=== PATIENT | female | born 1945 | race Caucasian/White ===

== ENCOUNTER 2017-01-31 11:38 | Emergency (ER) | payer OTHER ==
[~2017-01-31] VITALS: Ht 172.7 cm; Wt 111.1 kg
[2017-01-31] MEDS ORDERED: ASPIRIN81 M4 PO (11:54)
[2017-01-31] MEDS ORDERED: ATORVASTATIN CA40 M1 PO (11:54)
[2017-01-31] MEDS ORDERED: VITAMIN B-121000 MC3 PO (11:55)
[2017-01-31] MEDS ORDERED: BENICAR20 M1 PO (11:55)
[2017-01-31] MEDS ORDERED: BIOTIN10000 MCG PO (11:56)
[2017-01-31] MEDS ORDERED: ZETIA10 M1 PO (11:56)
[2017-01-31] MEDS ORDERED: VITAMIN D32000 UNI1 PO (11:56)
--- NOTE | 2017-01-31 12:19 | ED MVC/FALL/TRAUMA COMPLAINT ---
History of Present Illness General Chief Complaint: Fall Stated Complaint: FALL HEAD HEMATOMA Source: patient Exam Limitations: no limitations Vital Signs & Intake/Output Vital Signs & Intake/Output Vital Signs Date Time Temp Pulse Resp B/P Pulse O2 O2 Flow FiO2 Ox Delivery Rate 01/31 1511 98.3 74 20 154/72 96 Room Air 01/31 1343 97.9 61 20 143/70 97 Room Air 01/31 1153 97.1 71 18 179/92 98 Room Air Allergies Coded Allergies: No Known Allergies (01/31/17) Reconcile Medications Aspirin (Aspirin*) 81 MG TAB.CHEW 1 TAB PO DAILY HEART HEALTH (Reported) Atorvastatin Calcium 40 MG TABLET 1 TAB PO DAILY CHOLESTEROL (Reported) Biotin 10,000 MCG CAPSULE 1 CAP PO DAILY SUPPLEMENT (Reported) Cholecalciferol (Vitamin D3) (Vitamin D3) 2,000 UNIT TABLET 1 TAB PO DAILY SUPPLEMENT (Reported) Cyanocobalamin (Vitamin B-12) 1,000 MCG TABLET 1 TAB PO DAILY SUPPLEMENT ( Reported) Ezetimibe (Zetia) 10 MG TABLET 1 TAB PO DAILY CHOLESTEROL (Reported) Olmesartan Medoxomil (Benicar) 20 MG TABLET 0.5 TAB PO DAILY HEART (Reported) Triage Note: PT PRESENT WITH HEMOTOMA AND LAC ABOVE LEFT EYE S/P TRIP AND FALL OVER A PLANT. PT DENIES LOC AND STATES PAIN 4/10. DENIES FEELING DIZZY Triage Nurses Notes Reviewed? yes HPI: Patient presents for evaluation of left periorbital ecchymoses status post fall. Patient states that she was carrying some things outside when she tripped over a plant. His occurred at 10:00 this morning at home. Patient denies associated loss of consciousness neck or back pain. She states however she had an abrupt onset of left forehead pain and swelling. Symptoms are described as mild to moderate but constant since onset. She has tried applying ice without improvement. Past History Travel History Traveled to [place] past 21 day No Medical History Any Pertinent Medical History? see below for history Cardiovascular: hypertension, HLD Cancer(s): UTERINE CA Surgical History Surgical History: non-contributory Psychosocial History What is your primary language Yakut Tobacco Use: Never used ETOH Use: denies use Family History Hx Contributory? No Review of Systems Review of Systems Constitutional: Reports: no symptoms. Eyes: Reports: no symptoms. Ears, Nose, Throat, Mouth: Reports: no symptoms. Respiratory: Reports: no symptoms. Cardiovascular: Reports: no symptoms. Gastrointestinal/Abdominal: Reports: no symptoms. Genitourinary: Reports: no symptoms. Musculoskeletal: Reports: no symptoms. Skin: Reports: see HPI. Neurological/Psychological: Reports: no symptoms. All Other Systems: Reviewed and Negative Physical Exam Physical Exam General Appearance: SEE BELOW Comments: Gen.: Well-nourished, well-developed, no acute respiratory distress. Head: Normocephalic, atraumatic, nontender. Eyes: Impressive left vj-orbital ecchymoses and soft tissue swelling with near closure of the left eye. Left eye: PERRLA, EOMI. Pupil is round. Ears: Normal inspection bilaterally, no greenfield sign Nose: Normal inspection Throat/mouth : Moist mucosa Neck: Supple, full range of motion, no goiter, nontender Heart: Regular rate and rhythm, no murmurs rubs or gallops Lungs: Clear to auscultation bilaterally with normal air entry Chest: Nontender Back: Normal range of motion, nontender Abdomen: Soft, nontender, nondistended, normal bowel sounds Pelvis: Stable and nontender Extremities: Normal range of motion grossly, no tenderness, no cyanosis clubbing or edema Neurologic: Cranial nerves grossly intact, speech is clear Skin: warm and dry and without ecchymoses or soft tissue swelling or erythema Psychiatric: Calm, cooperative, no apparent delusions or hallucinations Diagram Head: 1) Ecchymoses and soft tissue swelling and abrasion Core Measures ACS in differential dx? No Severe Sepsis Present: No Septic Shock Present: No Progress Differential Diagnosis: HEAD TRAUMA, SINUS FRACTURE, ORBITAL FRACTURE C SPINE FRACTURE Plan of Care: Orders Procedure Date/time Status CT MAXILLOFACIAL W/O CON 02/[address] HEAD WO IV CONTRAST 01/[address] CERV SPINE WO IV CONTRAST 01/31 1218 Active Diagnostic Imaging: Discussed w/RAD: CT Scan. Radiology Impression: PATIENT: GITA JIMENEZ PRESENT AGE: 71 PATIENT ACCOUNT NO: [id number] : 45 LOCATION: [facility] ORDERING PHYSICIAN: MK SANTOS MD SERVICE DATE: 01/31/17-1236 EXAM TYPE: CAT - CT CERV SPINE WO IV CONTRAST; CT HEAD WO IV CONTRAST; CT MAXILLOFACIAL W/O CON EXAMINATION: CT HEAD, FACE, AND NECK. CLINICAL INFORMATION: Status post fall with scalp hematoma. COMPARISON: No relevant prior imaging is available. TECHNIQUE: Interface Designer images were obtained. CT acquisition of the head, face, and cervical spine were obtained without intravenous administration of contrast. Data was reformatted into multiplanar images at the acquisition workstation. DLP : 1878.71 mGy-cm. FINDINGS: Head: There is a focal left supraorbital hematoma with associated swelling in the left frontal scalp. The underlying calvarium is intact. There is no acute intracranial hemorrhage or abnormal extra-axial collection. No intracranial mass effect or midline shift. Lateral and third ventricles are normal. There is no hydrocephalus. Cardoza-white matter differentiation is preserved and there is no evidence of acute territorial infarct. A few well marginated subcutaneous lesions near the vertex are suspected to represent partially calcified epidermal inclusion cysts. Face: The mandible is intact and the temporomandibular joints are symmetric. The zygomatic arches, pterygoid processes, and nasal bones are intact. Globes are symmetric. There is subtle stranding within the left retrobulbar fat with no evidence of an overt retrobulbar hematoma. The lamina papyracea and orbital floors are intact. There is mild to moderate paranasal sinus disease. The left primary maxillary sinus ostium is occluded and both of the sphenoid sinus ostia are occluded. Cervical spine: There is anatomic alignment and position of the vertebral bodies and posterior elements of the cervical spine in the sagittal dimension. Vertebral body heights are preserved. There is no evidence of acute fracture. No abnormal prevertebral soft tissue swelling. There is arthrosis of the atlantodental joint with spurring at the superior aspect of the anterior C1 arch and the odontoid tip. There is degenerative disc space narrowing with associated sclerotic degenerative endplate changes, and intervertebral vacuum disc phenomenon, and disc osteophyte spurring at the levels of C3-C4, C4-C5, C5-C6, C6-C7, and C7-T1. There are broad central protrusions that cause at least moderate canal stenosis at the levels of C3-C4, C4-C5, and C5-C6. There are varying degrees of neuroforaminal encroachment related to uncovertebral joint spurring, most severe at C3-C4. Soft tissues of the neck are unremarkable. IMPRESSION: Head and face: There is a left supraorbital scalp hematoma. The underlying calvarium is intact. No evidence of acute fracture. No acute maxillofacial fracture. Mild to moderate paranasal sinus disease. Cervical spine : There is no evidence of acute cervical spine fracture. There is multilevel degenerative spondylosis with at least moderate canal stenosis at the levels of C3-C4, C4-C5, and C5-C6. If there is a clinical concern for compressive myelopathy then a dedicated cervical spine MRI should be obtained for better anatomic characterization of the cord. DICTATED BY: BOYD CHAVES MD DATE/ TIME DICTATED:01/31/171503 ART DISPLAY MAKER:WIL DATE/TIME TRANSCRIBED: 01/31/171503 CONFIDENTIAL, DO NOT COPY WITHOUT APPROPRIATE AUTHORIZATION. < Electronically signed in Other Vendor System> SIGNED BY: BOYD CHAVES MD 01/31/17 1519 Comments: 01/31/2017 2:00:10 PM I have updated Gita on the delay in her CAT scan (there is a complicated procedure in progress). She understands and is willing to wait. Unfortunately her left eye is now swollen shut and quite ecchymotic. However there is no focal neurologic deficit on repeat evaluation the patient's speech is clear and her gait is stable. Departure Departure Disposition: HOME OR SELF CARE Condition: Stable Clinical Impression Primary Impression: Traumatic hematoma of forehead Qualifiers: Encounter type: initial encounter Qualified Code: S00.83XA - Contusion of other part of head, initial encounter Secondary Impressions: Degenerative joint disease of cervical spine Qualifiers: Spinal osteoarthritis complication: without myelopathy or radiculopathy Qualified Code: M47.812 - Spondylosis without myelopathy or radiculopathy, cervical region Fall Qualifiers: Encounter type: initial encounter Qualified Code: W19.XXXA - Unspecified fall, initial encounter Sinus disease Referrals: BELINDA THAO,FARRAH Heredia (PCP/Family) Additional Instructions: Cold compresses for 20 minutes at a time 3-4 times per day over the next 48 hours. Tylenol or ibuprofen as needed for pain. Follow-up with your primary care doctor for reevaluation on Friday. Return if any concerns or sudden worsening. Please note that there might be incidental findings in your evaluation that are unrelated to the current emergency department visit. Please notify your primary care doctor about this emergency department visit in order to obtain and review all of the testing performed so that these incidental findings can be monitored as needed. If you had an x-ray performed, please understand that some fractures may not be seen on the initial set of x-rays. If your symptoms persist you might need a repeat set of x-rays to check for such a fracture. If you had a laceration evaluated, please understand that foreign bodies such as glass or wood may not be visible to the naked eye or on plain x-rays. If the wound becomes red, swollen, increasingly more painful or if there is any drainage from the wound, please have it reevaluated by a physician for the possibility of a retained foreign body. Thank you for choosing the [facility] Emergency Department for your care. It was a pleasure to serve you today. Mk Santos M.D. [facility] Departure Forms: Customer Survey General Discharge Information
[2017-01-31 15:11] VITALS: BP 154/72
--- NOTE | 2017-01-31 15:19 | CT SCAN REPORT ---
EXAMINATION: CT HEAD, FACE, AND NECK. CLINICAL INFORMATION: Status post fall with scalp hematoma. COMPARISON: No relevant prior imaging is available. TECHNIQUE: Back Tender Insulation Board images were obtained. CT acquisition of the head, face, and cervical spine were obtained without intravenous administration of contrast. Data was reformatted into multiplanar images at the acquisition workstation. DLP: 1878.71 mGy-cm. FINDINGS: Head: There is a focal left supraorbital hematoma with associated swelling in the left frontal scalp. The underlying calvarium is intact. There is no acute intracranial hemorrhage or abnormal extra-axial collection. No intracranial mass effect or midline shift. Lateral and third ventricles are normal. There is no hydrocephalus. Cardoza-white matter differentiation is preserved and there is no evidence of acute territorial infarct. A few well marginated subcutaneous lesions near the vertex are suspected to represent partially calcified epidermal inclusion cysts. Face: The mandible is intact and the temporomandibular joints are symmetric. The zygomatic arches, pterygoid processes, and nasal bones are intact. Globes are symmetric. There is subtle stranding within the left retrobulbar fat with no evidence of an overt retrobulbar hematoma. The lamina papyracea and orbital floors are intact. There is mild to moderate paranasal sinus disease. The left primary maxillary sinus ostium is occluded and both of the sphenoid sinus ostia are occluded. Cervical spine: There is anatomic alignment and position of the vertebral bodies and posterior elements of the cervical spine in the sagittal dimension. Vertebral body heights are preserved. There is no evidence of acute fracture. No abnormal prevertebral soft tissue swelling. There is arthrosis of the atlantodental joint with spurring at the superior aspect of the anterior C1 arch and the odontoid tip. There is degenerative disc space narrowing with associated sclerotic degenerative endplate changes, and intervertebral vacuum disc phenomenon, and disc osteophyte spurring at the levels of C3-C4, C4-C5, C5-C6, C6-C7, and C7-T1. There are broad central protrusions that cause at least moderate canal stenosis at the levels of C3-C4, C4-C5, and C5-C6. There are varying degrees of neuroforaminal encroachment related to uncovertebral joint spurring, most severe at C3-C4. Soft tissues of the neck are unremarkable. IMPRESSION: Head and face: There is a left supraorbital scalp hematoma. The underlying calvarium is intact. No evidence of acute fracture. No acute maxillofacial fracture. Mild to moderate paranasal sinus disease. Cervical spine: There is no evidence of acute cervical spine fracture. There is multilevel degenerative spondylosis with at least moderate canal stenosis at the levels of C3-C4, C4-C5, and C5-C6. If there is a clinical concern for compressive myelopathy then a dedicated cervical spine MRI should be obtained for better anatomic characterization of the cord.
== END 2017-01-31 15:46 ==
LOC: ERH 11:38
DX: S00.83XA Contusion of other part of head, initial encounter (principal); M50.31 Other cervical disc degeneration, high cervical region; M50.321 Other cervical disc degeneration at C4-C5 level; M50.322 Other cervical disc degeneration at C5-C6 level; J32.9 Chronic sinusitis, unspecified; W18.09XA Striking against other object with subsequent fall, initial encounter; Y93.01 Activity, walking, marching and hiking

== ENCOUNTER 2017-05-12 08:58 | Inpatient (IN) | payer OTHER, MEDICARE ==
[~2017-05-12] VITALS: Ht 172.7 cm; Wt 110.7 kg
[~2017-05-12 08:58] MED LIST: ASPIRIN81 M4 PO; ATORVASTATIN CA40 M1 PO; BENICAR20 M1 PO; BIOTIN10000 MCG PO; VITAMIN B-121000 MC3 PO; VITAMIN D32000 UNI1 PO; ZETIA10 M1 PO
--- NOTE | 2017-05-12 09:02 | NUR ---
PT DIRECTLY TO RM 2 FOR EKG
--- NOTE | 2017-05-12 09:04 | NUR ---
PT TO ED C/O PAIN UNDER LEFT BREAST X 1 WEEK. WORSE THIS MORNING. DENIES N/V/D. C/O "A LOT OF GAS AND BLOATING".
--- NOTE | 2017-05-12 09:19 | ED GI/GU/ABDOMINAL COMPLAINT ---
History of Present Illness General Chief Complaint: Abdominal Pain/Flank Pain Stated Complaint: ULQ ABD PAIN THAT RADIATES TO SHOULDER Source: patient Exam Limitations: no limitations Vital Signs & Intake/Output Vital Signs & Intake/Output Vital Signs Date Time Temp Pulse Resp B/P B/P Pulse O2 O2 Flow FiO2 Mean Ox Delivery Rate 05/13 2221 98.9 62 20 114/70 92 Room Air 05/13 1425 98.0 62 20 118/70 91 Room Air 05/13 0704 98.7 77 16 138/60 97 Room Air ED Intake and Output 05/14 0000 05/13 1200 Intake Total 1018 384 Output Total Balance 1018 384 Intake, IV 238 184 Intake, Oral 780 200 Allergies Coded Allergies: No Known Allergies (01/31/17) Reconcile Medications Aspirin (Aspirin*) 81 MG TAB.CHEW 1 TAB PO DAILY HEART HEALTH (Reported) Atorvastatin Calcium 40 MG TABLET 1 TAB PO DAILY CHOLESTEROL (Reported) Biotin 10,000 MCG CAPSULE 1 CAP PO DAILY SUPPLEMENT (Reported) Cholecalciferol (Vitamin D3) (Vitamin D3) 2,000 UNIT TABLET 1 TAB PO DAILY SUPPLEMENT (Reported) Cyanocobalamin (Vitamin B-12) 1,000 MCG TABLET 1 TAB PO DAILY SUPPLEMENT ( Reported) Ezetimibe (Zetia) 10 MG TABLET 1 TAB PO DAILY CHOLESTEROL (Reported) Olmesartan Medoxomil (Benicar) 20 MG TABLET 0.5 TAB PO DAILY HEART (Reported) Triage Note: PT TO ED C/O PAIN UNDER LEFT BREAST X 1 WEEK. WORSE THIS MORNING. DENIES N/V/D. C/O "A LOT OF GAS AND BLOATING". Triage Nurses Notes Reviewed? yes ? N Is pt currently ? No Duration: getting worse Timing: recent history Quality/Severity: sharpness, severe, stabbing Severity Numbers: 10 Activities at Onset: none HPI: Patient is a 71-year-old female with a past medical history of hypertension hyperlipidemia who presents emergency room for concerns of left upper quadrant abdominal pain 7 days. Patient states that the pain has not radiated to her left shoulder Patient denies any mechanism of injury or trauma. Patient does state that deep inhalation and palpation makes worse. Patient is able to tolerate by mouth with no change in symptoms. Last bowel movement was within the last 24 hours no blood no melena noted. Patient denies any fever chills cough chest pain jaw pain diaphoresis nausea vomiting. ([facility]AR L[address]) Past History Travel History Traveled to [place] past 21 day No Medical History Any Pertinent Medical History? see below for history Cardiovascular: hypertension, hyperlipidemia Cancer(s): UTERINE CA Surgical History Surgical History: non-contributory Psychosocial History What is your primary language Maltese Tobacco Use: Never used ETOH Use: denies use Illicit Drug Use: denies illicit drug use Family History Hx Contributory? No ([facility] [address]) Review of Systems Review of Systems Constitutional: Reports: no symptoms. EENTM: Reports: no symptoms. Respiratory: Reports: see HPI. Denies: cough. Cardiovascular: Reports: see HPI, chest pain. GI: Reports: see HPI, abdominal pain. Genitourinary: Reports: no symptoms. Musculoskeletal: Reports: no symptoms. Skin: Reports: no symptoms. Neurological/Psychological: Reports: no symptoms. Hematologic/Endocrine: Reports: no symptoms. Immunologic/Allergic: Reports: no symptoms. All Other Systems: Reviewed and Negative ([facility]AR LANE) Physical Exam Physical Exam General Appearance: moderate distress, obese Gastrointestinal: normal bowel sounds, soft, LEFT UPPER QUADRANT PAIN NO REBOUND , NO RLQ PAIN Rectal: heme negative stool Comments: HEENT: Normal EENT exam, Neck: Supple, no lymphadenopathy, normal range of motion Full range of motion Cardiovascular: Regular rate and rhythms no murmurs rubs or gallops, normal JVP Respiratory:No respiratory distress.breath sounds clear to auscultation bilaterally Extremity: No edema, no calf tenderness to palpation, normal and equal pulses. Neuro: Alert oriented x3, motor sensory normal, Skin: No appreciable rash on exposed skin, skin is warm and dry. Psych: Mood and affect is normal, memory and judgment is normal. Diagram Body Front & Back 1) Noted mild erythema however superficial palpation reproduce no tenderness Point tenderness elicited to left upper quadrant and intercostal region upon deeper palpation Core Measures ACS in differential dx? Yes Severe Sepsis Present: No Septic Shock Present: No ([facility] [address]) Progress Differential Diagnosis: AAA, AMI, biliary colic, bowel obstruction, colon cancer , cholecystitis, diverticulitis, ectopic , endometritis, esophageal varices, gastritis, hepatitis, hernia, hemorrhoids, ischemic bowel, inflamm bowel dis, intrauterine , kidney stone, Marianne-Danielle tear, ovarian cyst , ovarian torsion, pancreatitis, PID/cervicitis, peptic ulcer, PUD/GERD, perforated viscous, SBO, threatened AB, UTI/pyelo Plan of Care: Orders Procedure Date/time Status Anticipated Discharge 05/14 06 Active CBC WITHOUT DIFFERENTIAL 05/14 06 Active BASIC ELECTROLYTES PLUS BUN&CR 05/14 06 Active Change service to 05/13 1655 Active PARTIAL THROMBOPLASTIN TIME 05/13 1100 Complete Current Medications Sig/Bev Start time Last Medication Dose Stop Time Status Admin Apixaban 10 MG BID 05/13 1345 AC 05/13 (Eliquis) 2219 Aspirin 81 MG DAILY 05/13 1000 AC 05/13 (Aspirin) 1115 Atorvastatin Calcium 40 MG DAILY 05/13 1000 AC 05/13 (Lipitor) 1116 Cholecalciferol 2,000 IU DAILY 05/13 1000 AC 05/13 (Vitamin D) 1117 Cyanocobalamin 1,000 MCG DAILY 05/13 1000 AC 05/13 (Vitamin B12) 1116 Ezetimibe 10 MG DAILY 05/13 1000 AC 05/13 (Zetia) 1117 Losartan Potassium 37.5 MG DAILY 05/13 1000 AC 05/13 (Cozaar) 1115 Acetaminophen 650 MG Q6P PRN 05/12 1315 AC (Tylenol) Morphine Sulfate 0.5 MG Q6P PRN 05/12 1315 AC 05/13 (Morphine) 1636 Oxycodone HCl 5 MG Q6P PRN 05/12 1315 AC 05/12 (Roxicodone) 2206 Laboratory Tests 05/13/17 1140: APTT 56 H 05/13/17 0622: Anion Gap 8, Estimated GFR > 60, BUN/Creatinine Ratio 21.3, PT 13.1 H, INR 1.25 H, CBC w Diff NO MAN DIFF REQ, RBC 3.92 L, MCV 93.5, MCH 31.0, RDW 12.8, MPV 8.0, Gran % 73.8, Lymphocytes % 14.0 L, Monocytes % 8.5, Eosinophils % 3.5, Basophils % 0.2, Absolute Granulocytes 7.1 H, Absolute Lymphocytes 1.3, Absolute Monocytes 0.8 H, Absolute Eosinophils 0.3, Absolute Basophils 0, PUBS MCHC 33.2 05/13/17 0230: APTT 108 *H 1048- patient currently resting comfortably at bedside however patient did have significantly elevated d-dimer which patient will be obtaining CT angiogram Patient had critical findings of segmental left pulmonary embolism. Patient had negative fecal occult Patient will be heparinized and admitted to telemetry Discussed admission with Dr. Santos Discussed results with patient who was aware of admission (KENZIE BEAVER,CESAR) Diagnostic Imaging: Viewed by Me: CT Scan. Radiology Impression: acute abnormality Initial ED EK BPM, PREMATURE ATRIAL COMPLEX Comments: PATIENT: JANET JIMENEZ PRESENT AGE: 71 PATIENT ACCOUNT NO: [id number] : 45 LOCATION: ER ORDERING PHYSICIAN: CESAR BEAVER SERVICE DATE: 05/12/17 EXAM TYPE: CAT - CT ABD & PELVIS W IV CONTRAST; CTA CHEST-PULMONARY EMBOLISM EXAMINATION: CT ANGIOGRAM OF THE CHEST WITH AND WITHOUT CONTRAST (CT PULMONARY ANGIOGRAM FOR PE); CT OF THE ABDOMEN AND PELVIS CLINICAL INFORMATION: Elevated d-dimer. Left upper quadrant abdominal pain. COMPARISON: None TECHNIQUE: Prior to contrast administration, noncontrast localization images were obtained. Subsequently, multidetector volumetric imaging was performed from the thoracic inlet to below the diaphragms following the administration of 125 mL Optiray 350. intravenous contrast. No contrast reaction reported. Sagittal, coronal, and MIP oblique sagittal reformatted images were obtained on the CT workstation, uploaded to PACS, and reviewed. Additional axial scans were obtained of the abdomen and pelvis as well. Total exam dose-length product 1707 mGy-cm. FINDINGS: QUALITY OF STUDY/CONTRAST BOLUS: Satisfactory PULMONARY ARTERIES: A nonocclusive clot nearly fills the lumen of the lobar pulmonary artery supplying the left lower lobe. Segmental clots are seen in the right lower lobe. The main, left, and right pulmonary arteries are well patent showing no clot formation. THORACIC AORTA: No aneurysm or dissection. LUNG: No focal consolidation, nodules or masses. PLEURA: Alveolar and interstitial opacities involve the left lower lobe. This either represents pneumonia or evolving pulmonary infarction. There is a small left pleural effusion. Minimal dependent atelectasis involves the right lower lobe. MEDIASTINUM: Normal heart size. No significant pericardial effusion. No hilar or mediastinal lymphadenopathy. No evidence of septal bowing or right heart strain. CHEST WALL/AXILLA: No axillary or internal mammary lymphadenopathy. LIVER, GALLBLADDER, AND BILIARY TREE: There is normal reflux of contrast into the hepatic veins that would indicate elevated right atrial pressures. The liver is normal in size, shape, and attenuation. No focal hepatic lesion or biliary ductal dilatation is present. The gallbladder contains 2 large gallstones but is otherwise unremarkable. PANCREAS: Unremarkable. SPLEEN: Unremarkable. ADRENAL GLANDS: Unremarkable. KIDNEYS AND URETERS: The kidneys are normal in size, shape, and attenuation. No hydronephrosis, hydroureter, or calculi seen. No perinephric stranding. However, very large peripelvic and intrarenal sinus cyst are present are contained within both kidneys. This appearance simulates hydronephrosis. Ureters are not dilated. A 4.8 cm diameter cyst arises from the lower pole of the right kidney. BLADDER: Empty. GASTROINTESTINAL TRACT: The small and stomach are unremarkable. Multiple diverticula arise in the left colon but there is no sign of diverticulitis. There is a small amount of presacral edema but no free fluid otherwise. ABDOMINAL WALL: A moderately large fat-containing vocal hernia is present. LYMPH NODES: Normal. VASCULAR: The abdominal aorta contains calcified plaques but is otherwise unremarkable. PELVIC VISCERA: Uterus has been removed. Numerous surgical clips are present on both sides of the pelvic sidewalls and the para-aortic region of the lower abdomen. No abnormal adnexal masses are seen. OSSEOUS STRUCTURES: Multilevel disc disease. IMPRESSION: 1. Pulmonary embolism to the lobar branch of the left lung supplying the lower lobe. Segmental pulmonary emboli in the right lower lobe. 2. Either left lower lobe pneumonia or evolving pulmonary infarction in the left lower lobe. Small left pleural effusion. 3. Cholelithiasis. 4. Large peripelvic intrarenal sinus cysts, left greater than right. On the left side, hydronephrosis is simulated. 5. Numerous surgical clips in the lower abdomen and both sides of the pelvis. VTE: Positive. This critical result was discussed with 12:10 PM at [facility] on May 12 and it was ascertained that the content and urgency of the report was understood at the time of direct communication. (KENZIE BEAVER,CESAR) Departure Departure Disposition: STILL A PATIENT Condition: Stable Clinical Impression Primary Impression: Pulmonary embolism Referrals: FARRAH TREVINO MD (PCP/Family) Departure Forms: Customer Survey General Discharge Information Admission Note Spoke With: LIU ZULUAGA MD Documentation of Exam: Documentation of any treatments & extenuating circumstances including Concerns Regarding Discharge (functional status, medication knowledge or non-compliance, living conditions, etc.) that warrant an admission rather than observation: [ Discussed telemetry admission with for critical findings of pulmonary embolism who agrees which patient requires IV heparinization, IV pain management , echocardiogram, repeat labs. Outpatient treatment at this time would be medically harmful] ([facility] [address]) PA/ACCOUNT MANAGER B2B Co-Sign Statement Statement: ED Attending supervision documentation- [X] I saw and evaluated the patient. I have also reviewed all the pertinent lab results and diagnostic results. I agree with the findings and the plan of care as documented in the PA's/ACCOUNT MANAGER B2B's documentation. [] I have reviewed the ED Record and agree with the PA's/ACCOUNT MANAGER B2B's documentation. [] Additions or exceptions (if any) to the PAs/ACCOUNT MANAGER B2B's note and plan are summarized below: [] (MARGO THAO,YAYA Curry) Critical Care Note Critical Care Note Critical Care Time: 30-74 min ([facility])
[2017-05-12 09:54] LABS: ABSOLUTE BASOPHIL COUNT 0 /CUMM (0.0-0.2); ABSOLUTE EOSINOPHIL COUNT 0.1 /CUMM (0.0-0.7); ABSOLUTE LYMPH COUNT 1.1 /CUMM (1.2-3.4); ABSOLUTE MONOCYTE COUNT 0.6 /CUMM (0.10-0.60); BASOPHIL % 0.3 % (0.0-2.0); EOSINOPHIL % 0.8 % (0-5); HEMATOCRIT 43.1 % (37-47); MEAN CORPUSCULAR HGB 30.8 PG (27.0-31.0); MEAN CORPUSCULAR HGB CONC 33.3 G/DL (33.0-37.0); MEAN CORPUSCULAR VOLUME 92.5 FL (81.0-99.0); MEAN PLATELET VOLUME 7.7 FL (7.4-10.4); PLATELET COUNT 319 /CUMM (130-400); RED BLOOD CELL CT 4.66 /CUMM (4.20-5.40); WHITE BLOOD CELL COUNT 11.7 /CUMM (4.8-10.8)
--- NOTE | 2017-05-12 09:55 | NUR ---
IV INITIATED, LABS DRAWN AND SENT.
--- NOTE | 2017-05-12 10:09 | NUR ---
PT MEDICATED WITH 6 MG MORPHINE IV. SIDE RAILS UP AND LIGHTS DIMMED FOR COMFORT
--- NOTE | 2017-05-12 10:58 | NUR ---
PT TO CAT SCAN
[2017-05-12 11:20] LABS: PT 12.7 SEC (9.4-12.5); PTT 32 SEC (25-37)
--- NOTE | 2017-05-12 12:32 | CT SCAN REPORT ---
EXAMINATION: CT ANGIOGRAM OF THE CHEST WITH AND WITHOUT CONTRAST (CT PULMONARY ANGIOGRAM FOR PE); CT OF THE ABDOMEN AND PELVIS CLINICAL INFORMATION: Elevated d-dimer. Left upper quadrant abdominal pain. COMPARISON: None TECHNIQUE: Prior to contrast administration, noncontrast localization images were obtained. Subsequently, multidetector volumetric imaging was performed from the thoracic inlet to below the diaphragms following the administration of 125 mL Optiray 350. intravenous contrast. No contrast reaction reported. Sagittal, coronal, and MIP oblique sagittal reformatted images were obtained on the CT workstation, uploaded to PACS, and reviewed. Additional axial scans were obtained of the abdomen and pelvis as well. Total exam dose-length product 1707 mGy-cm. FINDINGS: QUALITY OF STUDY/CONTRAST BOLUS: Satisfactory PULMONARY ARTERIES: A nonocclusive clot nearly fills the lumen of the lobar pulmonary artery supplying the left lower lobe. Segmental clots are seen in the right lower lobe. The main, left, and right pulmonary arteries are well patent showing no clot formation. THORACIC AORTA: No aneurysm or dissection. LUNG: No focal consolidation, nodules or masses. PLEURA: Alveolar and interstitial opacities involve the left lower lobe. This either represents pneumonia or evolving pulmonary infarction. There is a small left pleural effusion. Minimal dependent atelectasis involves the right lower lobe. MEDIASTINUM: Normal heart size. No significant pericardial effusion. No hilar or mediastinal lymphadenopathy. No evidence of septal bowing or right heart strain. CHEST WALL/AXILLA: No axillary or internal mammary lymphadenopathy. LIVER, GALLBLADDER, AND BILIARY TREE: There is normal reflux of contrast into the hepatic veins that would indicate elevated right atrial pressures. The liver is normal in size, shape, and attenuation. No focal hepatic lesion or biliary ductal dilatation is present. The gallbladder contains 2 large gallstones but is otherwise unremarkable. PANCREAS: Unremarkable. SPLEEN: Unremarkable. ADRENAL GLANDS: Unremarkable. KIDNEYS AND URETERS: The kidneys are normal in size, shape, and attenuation. No hydronephrosis, hydroureter, or calculi seen. No perinephric stranding. However, very large peripelvic and intrarenal sinus cyst are present are contained within both kidneys. This appearance simulates hydronephrosis. Ureters are not dilated. A 4.8 cm diameter cyst arises from the lower pole of the right kidney. BLADDER: Empty. GASTROINTESTINAL TRACT: The small and stomach are unremarkable. Multiple diverticula arise in the left colon but there is no sign of diverticulitis. There is a small amount of presacral edema but no free fluid otherwise. ABDOMINAL WALL: A moderately large fat-containing vocal hernia is present. LYMPH NODES: Normal. VASCULAR: The abdominal aorta contains calcified plaques but is otherwise unremarkable. PELVIC VISCERA: Uterus has been removed. Numerous surgical clips are present on both sides of the pelvic sidewalls and the para-aortic region of the lower abdomen. No abnormal adnexal masses are seen. OSSEOUS STRUCTURES: Multilevel disc disease. IMPRESSION: 1. Pulmonary embolism to the lobar branch of the left lung supplying the lower lobe. Segmental pulmonary emboli in the right lower lobe. 2. Either left lower lobe pneumonia or evolving pulmonary infarction in the left lower lobe. Small left pleural effusion. 3. Cholelithiasis. 4. Large peripelvic intrarenal sinus cysts, left greater than right. On the left side, hydronephrosis is simulated. 5. Numerous surgical clips in the lower abdomen and both sides of the pelvis. VTE: Positive. This critical result was discussed with 12:10 PM at [facility] on May 12 and it was ascertained that the content and urgency of the report was understood at the time of direct communication.
--- NOTE | 2017-05-12 12:40 | NUR ---
HEPARIN DRIP STARTED, PT RECTAL HEME NEGATIVE PER SD GARCÍA ORDERED. LUNGS CLEAR, PT MILDLY SOB WITH ACTIVITY OR LYING FLAT, DENIES CP.
--- NOTE | 2017-05-12 12:51 | History & Physical ---
KEVIN PHILLIPS MD,[facility] 05/12/17 1250: General Information and HPI MD Statement: I have seen and personally examined JANET JIMENEZ and documented this H&P. The patient is a 71 year old F who presented with a patient stated chief complaint of [Left upper quadrant pain]. Source of Information: patient, old records Exam Limitations: no limitations History of Present Illness: 71-year-old female with past medical history of obesity, significant for Uterine CA s/p Hysterectomy 2000 s/p radiation therapy 2002, hair loss and Right leg lyphedema post cancer tx, inflammatory and hamartomatous polyps on colonoscopy 2013, hypertension on Benicar, hyperlipidemia on atorvastatin, DJD sleeps in a recliner chair, h/o Breast lesions came to emergency department with chief complaint of pain under left breast for the last 1 week. According to the patient for the last 1 week she was having a constant pain under her left breast. She initially felt that this pain was secondary to her constipation as it traveled down in the left lower quadrant. She also had associated symptoms including gas, bloating and constipation. She is attributing it or to her constipation after she had a bowel movement on this day her symptoms still did not get better and also the pain started to radiate to her left shoulder. Her pain was so bad with that. She was unable to move and she was using heating pads, to calm herself. She also started experiencing pain with mild cough and movement. When she woke up this morning her symptoms acutely worsen and she decided to come to emergency department. Review of system was negative for any headaches, visual changes, nausea, vomiting, diarrhea, change in urinary habits, fever, cough, rash, or bilateral lower extremity swelling. Patient did have a history of fall on 01/31/2017 and came to emergency department and she had a negative head CT, left supraorbital scalp hematoma without any fracture. She was managed conservatively. Patient denied any history of smoking, recent surgery, hormonal therapy, or a history of lung clots, gene mutations in the family. Allergies/Medications Allergies: Coded Allergies: No Known Allergies (01/31/17) Home Med list Aspirin (Aspirin*) 81 MG TAB.CHEW 1 TAB PO DAILY HEART HEALTH (Reported) Atorvastatin Calcium 40 MG TABLET 1 TAB PO DAILY CHOLESTEROL (Reported) Biotin 10,000 MCG CAPSULE 1 CAP PO DAILY SUPPLEMENT (Reported) Cholecalciferol (Vitamin D3) (Vitamin D3) 2,000 UNIT TABLET 1 TAB PO DAILY SUPPLEMENT (Reported) Cyanocobalamin (Vitamin B-12) 1,000 MCG TABLET 1 TAB PO DAILY SUPPLEMENT ( Reported) Ezetimibe (Zetia) 10 MG TABLET 1 TAB PO DAILY CHOLESTEROL (Reported) Olmesartan Medoxomil (Benicar) 20 MG TABLET 0.5 TAB PO DAILY HEART (Reported) Compliance With Home Meds: GOOD Past History Travel History Traveled to [place] past 21 day No Medical History Cardiovascular: hypertension, hyperlipidemia Cancer(s): UTERINE CA Surgical History Surgical History: hysterectomy Past Family/Social History Family History Relations & Conditions if any FATHER FH: congestive heart failure, Onset: 60+. MOTHER FH: cancer, Onset: 50-60. Psychosocial History Smoking Status: Never Smoked ETOH Use: denies use Illicit Drug Use: denies illicit drug use Functional Ability ADLs Independent: dressing, eating, toileting, bathing. Ambulation: independent IADLs Independent: shopping, housework, finances, food prep, telephone, transportation , medication admin. Review of Systems Review of Systems Constitutional: Denies: chills, fever. EENTM: Denies: visual changes. Cardiovascular: Reports: chest pain. Denies: palpitations. Respiratory: Reports: short of breath. Denies: cough. GI: Denies: abdominal pain, nausea, vomiting. Genitourinary: Denies: discharge. Musculoskeletal: Reports: back pain. All Other Systems: Reviewed and Negative Exam & Diagnostic Data Last 24 Hrs of Vital Signs/I&O Vital Signs Date Time Temp Pulse Resp B/P B/P Pulse O2 O2 Flow FiO2 Mean Ox Delivery Rate 05/12 1351 68 20 137/63 94 Room Air 05/12 1130 97.1 67 20 122/60 95 Room Air 05/12 1040 97.0 58 18 112/56 94 Room Air 05/12 1012 97.0 62 8 102/54 98 Room Air 05/12 0906 98.5 69 20 141/96 93 Room Air Intake & Output 05/12 1600 05/12 0800 05/12 0000 Intake Total Output Total Balance Patient 245 lb Weight Weight Reported by Patient Measurement Method Physical Exam General Appearance Alert, Oriented X3, Cooperative, Mild Distress Skin No Rashes HEENT chronic hair loss Neck Supple Cardiovascular Regular Rate, Normal S1, Normal S2, No Murmurs Lungs Clear to Auscultation, Normal Air Movement Abdomen Normal Bowel Sounds, Soft, No Tenderness, obese and distended Neurological Normal Speech, Normal Tone Extremities No Clubbing, No Cyanosis, chronic nonpitting edema Vascular Normal Pulses Rectal Guiac Negative Last 24 Hrs of Labs/Terence: Laboratory Tests 05/12/17 1246: Lactic Acid Cancelled 05/12/17 0946: Lactic Acid 1.6 05/12/17 0946: Anion Gap 14, Estimated GFR > 60, BUN/Creatinine Ratio 17.5, Glucose 106 H, Calcium 9.3, Total Bilirubin 1.1, AST 34, ALT 58 H, Alkaline Phosphatase 190 H , Troponin I < 0.01, Total Protein 6.5, Albumin 3.5, Globulin 3.0, Albumin/ Globulin Ratio 1.2, Amylase 37, Lipase 46, PT 12.7 H, INR 1.21 H, APTT 32, D- Dimer High Sensitivty 4029 H, CBC w Diff NO MAN DIFF REQ, RBC 4.66, MCV 92.5, MCH 30.8, RDW 13.0, MPV 7.7, Gran % 85.0 H, Lymphocytes % 9.1 L, Monocytes % 4.8, Eosinophils % 0.8, Basophils % 0.3, Absolute Granulocytes 10.0 H, Absolute Lymphocytes 1.1 L, Absolute Monocytes 0.6, Absolute Eosinophils 0.1, Absolute Basophils 0, PUBS MCHC 33.3 Diagnostic Data EKG Results Sinus rhythm, no axis deviation, QTC of 428 Other Results Imaging showed, Pulmonary embolism to the lobar branch of the left lung supplying the lower lobe. Segmental pulmonary emboli in the right lower lobe. Either left lower lobe pneumonia or evolving pulmonary infarction in the left lower lobe. Small left pleural effusion. Cholelithiasis. Numerous surgical clips in the lower abdomen and both sides of the pelvis. Assessment/Plan Assessment: 71-year-old female with past medical history of obesity, significant for Uterine CA s/p Hysterectomy 2000 s/p radiation therapy 2002, hair loss and Right leg lyphedema post cancer tx, inflammatory and hamartomatous polyps on colonoscopy 2013, hypertension on Benicar, hyperlipidemia on atorvastatin, DJD sleeps in a recliner chair, h/o Breast lesions came to emergency department with chief complaint of pain under left breast for the last 1 week. Vitals in emergency department patient afebrile, no tachypnea, no tachycardia, systolic blood pressure 102-122 and diastolic blood pressure 54-60. Labs significant for mild leukocytosis 11.7, granulocytes 85%, no significant electrolyte abnormality, ALT 58, alkaline phosphatase 190, troponin less than 0.01, normal lipase and amylase INR of 1.21 d-dimer of 4029. Imaging showed, Pulmonary embolism to the lobar branch of the left lung supplying the lower lobe. Segmental pulmonary emboli in the right lower lobe. Either left lower lobe pneumonia or evolving pulmonary infarction in the left lower lobe. Small left pleural effusion. Cholelithiasis. Numerous surgical clips in the lower abdomen and both sides of the pelvis. Patient was admitted on telemetry floor for the management of following problems Pulmonary embolism in the setting of Uterince cancer s/p Hysterectomy 2000 and morbid obesity Patient did have a history of recent fall in January 2017 but according to her she was not sedentary after her fall and denied any history of smoking, recent surgery, hormonal therapy, or a history of lung clots, gene mutations in the family. According to the Wells criteria, she had low probability malignancy from 1 point with D-dimer of 4029 and imaging showing pulmonary embolism. Pateint's only Risk factor is morbid obesity and underlying h/o malignancy. We would like to see the Right Heart strain in the setting of significant pulmonary emboli. We will also trend the troponin and Ekg. She will be started on IV heparin and will order the Doppler US to assess the clot burden. We will keep her on IV heaprin until we get the US and then depending on the results we will switch her to Oral anticoagulation depending on the insurance coverage. Incidental Finding Large peripelvic intrarenal sinus cysts, left greater than right. On the left side, hydronephrosis is simulated. This was discussed with Radiologist Dr. Avalos and he said this hydronephrosis on imaging is a fake out and this finding looks like hydronephrosis because of cysts but there is actually no hydronephrosis. Patient is full code Patient is on IV heparin for DVT prophylaxis Patient is on heart healthy diet Patient is on pain management As Ranked By This Provider Problem List: 1. Pulmonary embolism Core Measures/Miscellaneous Acute Coronary Syndrome ACS Diagnosis: No Cerebrovascular Accident CVA/TIA Diagnosis: No Congestive Heart Failure CHF Diagnosis: No VTE (View Protocol) VTE Risk Factors: Acute medical illness, Age > 40, Cancer/chemo/oth therapy No Mech VTE prophylaxis d/t: No contraindications No VTE Pharm Prophylaxis d/t: No contraindications VTE Diagnosis: Yes VTE Type: Pulmonary Embolism VTE Confirmed by (Test): CT CHEST ANGIOGRAM Sepsis (View Protocol) Severe Sepsis Present: No Septic Shock Septic Shock Present: No Miscellaneous Documentation Attending Case Discussed With: DORIS ARAGON MD Primary Care Physician: FARRAH TREVINO MD Patient sees these Specialists [facility] Breast surgeon Level of Patient Care: Telemetry DORIS ARAGON MD 05/12/17 1547: Attending MD Review Statement Attending Statement Attending Assessment/Plan: 71-year-old female with past medical history of morbid obesity, uterine CA status post hysterectomy in 2000 and ongoing radiation 2 2002, recent breast imaging and biopsy who is here with acute onset of left breast and left chest pain, found to have an elevated d-dimer which prompted a CT chest, abdomen, pelvis with contrast in the ER. Patient is an acute left lung lower lobe pulmonary embolism with what looks like pulmonary infarction with a segmental PE on the right side as well. Obviously with the degree of clot, I am worried about an intrinsic hypercoaguble state including active malignancy. At this point will give IV heparin and get a Doppler ultrasound of her legs to make sure she doesn't have heavy clot burden there. We will get an echocardiogram and have cardiology see her. She follows with Dr. Bennett and Dr. Savage covers that group, so will speak to him. I think that ultimately we may be able to transition her to an oral agent once we know that she doesn't need any procedure and we make sure that she doesn't have an active malignancy that's causing these issues.
--- NOTE | 2017-05-12 12:56 | NUR ---
OK WITH CESAR BEAVER TO TAKE ALL AM MEDS PT REPORTS ALWAYS TAKING CHOL MED IN AM. TOOK ALL MEDS IN THIS RN PRESENCE.,
--- NOTE | 2017-05-12 13:33 | NUR ---
BED 189-2
--- NOTE | 2017-05-12 13:44 | NUR ---
HOUSESTAFF AT BEDSIDE.
--- NOTE | 2017-05-12 14:00 | NUR ---
REPORT TO FLOOR TRANSPORT BOOKED.
--- NOTE | 2017-05-12 14:14 | NUR ---
HOUSESTAFF REMAINS AT BEDSIDE.
[2017-05-12 14:59] VITALS: BP 146/70
--- NOTE | 2017-05-12 15:47 | Admission Certification ---
Admission Certification Certification Statement - As attending physician, I certify that at the time of - admission, based on clinical presentation, severity of - symptoms, need for further diagnostic testing and - therapeutic interventions, and risk of adverse outcomes - without in-hospital treatment, in my clinical assessment, - this patient requires an acute hospital stay for a minimum - of two nights or longer. I have also considered psychsocial - factors such as support system, advanced age, financial - issues, cognitive issues, and failed out-patient treatments, - past re-admission history, safety of patient, and lack of - compliance as applicable. Specific rationale supporting this admission is: Acute pulmonary embolism with likely pulmonary infarction needs IV heparin and further workup.
--- NOTE | 2017-05-12 18:41 | ULTRASOUND REPORT ---
EXAMINATION: US TRIPLEX OF LOWER EXTREMITIES, BILATERAL CLINICAL INFORMATION: Bilateral lower extremity edema. History of left lower lobe pulmonary embolism, evaluate for clot burden. COMPARISON: CT pulmonary angiogram, CT abdomen and pelvis performed earlier the same day. TECHNIQUE: Color-flow triplex imaging with spectral analysis and compression Doppler were performed on the lower extremities. FINDINGS: Left: There is occlusive thrombus in the included portions of the left common femoral, femoral, and upper popliteal vein. The mid to lower left popliteal vein demonstrates some nonocclusive thrombus. Right: Respiratory variation, normal compression and augmented flow are noted throughout the lower extremities. The visualized common femoral vein, superficial femoral vein, profunda femoral vein, popliteal vein and midcalf peroneal and posterior tibial venous segments show no evidence of deep venous thrombosis. There is no Ramirez's cyst. IMPRESSION: Extensive deep venous thrombosis in the left lower extremity. Critical result: Extensive left lower extremity deep venous thrombosis was discussed with Dr Alisa Gill directly by the radiologist interpreting this examination at 1837 hours 05/12/2017. It was ascertained that the content and urgency of the report was understood at the time of direct communication.
--- NOTE | 2017-05-12 19:22 | Cons- Cardiology ---
General Information and HPI Consulting Request Date of Consult: 05/12/17 Requested By: MAHESH THAO,DORIS Fatima Reason for Consult: Pulmonary embolism History of Present Illness: The patient is a 71-year-old female with history of uterine cancer status post surgery and radiation therapy, rate lower extremity lymphedema, and hypertension who is admitted with pulmonary embolism. She is followed in the office by Dr. Bennett from my group. She presented with complaint of sharp pain under the left breast for one week. She initially had associated constipation, however the chest discomfort continued after the constipation resolved. She also notes recent shortness of breath. No palpitations. No diaphoresis. No syncope. She is found to have pulmonary embolism and deep vein thrombosis, and is admitted for further management. Allergies/Medications Allergies: Coded Allergies: No Known Allergies (01/31/17) Home Med List: Aspirin (Aspirin*) 81 MG TAB.CHEW 1 TAB PO DAILY HEART HEALTH (Reported) Atorvastatin Calcium 40 MG TABLET 1 TAB PO DAILY CHOLESTEROL (Reported) Biotin 10,000 MCG CAPSULE 1 CAP PO DAILY SUPPLEMENT (Reported) Cholecalciferol (Vitamin D3) (Vitamin D3) 2,000 UNIT TABLET 1 TAB PO DAILY SUPPLEMENT (Reported) Cyanocobalamin (Vitamin B-12) 1,000 MCG TABLET 1 TAB PO DAILY SUPPLEMENT ( Reported) Ezetimibe (Zetia) 10 MG TABLET 1 TAB PO DAILY CHOLESTEROL (Reported) Olmesartan Medoxomil (Benicar) 20 MG TABLET 0.5 TAB PO DAILY HEART (Reported) Current Medications: Current Medications Sig/Bev Start time Last Medication Dose Route Stop Time Status Admin Acetaminophen 650 MG Q6P PRN 05/12 1315 AC PO Aspirin 81 MG DAILY 05/13 1000 AC PO Atorvastatin Calcium 40 MG DAILY 05/13 1000 AC PO Ceftazidime 0 .STK-MED ONE 05/12 1359 DC .ROUTE Cholecalciferol 2,000 IU DAILY 05/13 1000 AC PO Cyanocobalamin 1,000 MCG DAILY 05/13 1000 AC PO Ezetimibe 10 MG DAILY 05/13 1000 AC PO Heparin Sodium 0 .STK-MED ONE 05/12 1232 DC (Porcine) .ROUTE Heparin Sodium 5,000 UNIT ONCE ONE 05/12 1145 DC 05/12 (Porcine) IV 05/12 1146 1236 Heparin Sodium 25,000 UNIT Q24H 05/12 1145 AC 05/12 (Porcine) IV 1236 Sodium Chloride 500 ML Losartan Potassium 37.5 MG DAILY 05/13 1000 AC PO Morphine Sulfate 0.5 MG Q6P PRN 05/12 1315 AC IV Morphine Sulfate 6 MG ONCE ONE 05/12 1015 DC 05/12 IV 05/12 1016 1009 Morphine Sulfate 0 .STK-MED ONE 05/12 1013 DC .ROUTE Oxycodone HCl 5 MG Q6P PRN 05/12 1315 AC PO Review of Systems Review of Systems: No rash. No tremor. No melena. All other systems were reviewed, and were noted to be negative. Past History Travel History Traveled to [place] past 21 day No Medical History Blood Transfusion Hx: No Neurological: NONE EENT: NONE Cardiovascular: hypertension, hyperlipidemia Respiratory: pulmonary embolism Gastrointestinal: NONE Hepatic: NONE Renal: NONE Musculoskeletal: NONE Psychiatric: NONE Endocrine: NONE Cancer(s): UTERINE CA Surgical History Surgical History: hysterectomy, ADENOIDS (as a child) Family History Relations & Conditions If Any: FATHER FH: congestive heart failure, Onset: 60+. MOTHER FH: cancer, Onset: 50-60. Psychosocial History Where Do You Live? Home Smoking Status: Never Smoked ETOH Use: denies use Illicit Drug Use: denies illicit drug use Functional Ability ADLs Independent: dressing, eating, toileting, bathing. Ambulation: independent IADLs Independent: shopping, housework, finances, food prep, telephone, transportation , medication admin. Exam & Diagnostic Data Vital Signs and I&O Vital Signs Date Time Temp Pulse Resp B/P B/P Pulse O2 O2 Flow FiO2 Mean Ox Delivery Rate 05/12 1459 99.2 70 16 146/70 95 Room Air 05/12 1351 68 20 137/63 94 Room Air 05/12 1130 97.1 67 20 122/60 95 Room Air 05/12 1040 97.0 58 18 112/56 94 Room Air 05/12 1012 97.0 62 8 102/54 98 Room Air 05/12 0906 98.5 69 20 141/96 93 Room Air Intake & Output 05/12 1600 05/12 0800 05/12 0000 05/11 1600 05/11 0800 05/11 0000 Intake Total Output Total Balance Patient 245 lb Weight Weight Reported by Patient Measurement Method Physical Exam: Gen: The patient is in no acute distress HEENT: Normal nose, ears, and oropharynx. Pupils equal bilaterally. Conjunctiva normal. Neck: Supple with no JVD, no masses, and no thyromegaly Lungs: Clear to auscultation with normal respiratory effort Heart: RRR, S1, S2, 2/6 systolic murmur. 1+ peripheral edema, right > left, 2+ pulses in the lower extremities bilaterally Abdomen: Soft, nontender, no masses. No hepatomegaly. No splenomegaly Extremities: No clubbing or cyanosis. Normal muscle strength in the upper and lower extremities Skin: Normal skin turgor with no skin ulcers or lesions noted. Neuro: Cranial nerves intact. Sensation intact Psych: Alert and oriented 3 with appropriate affect Labs/Terence Results: Laboratory Tests 05/12 05/12 05/12 1850 1246 0946 Chemistry Lactic Acid (0.7 - 2.1 mmol/L) Cancelled 1.6 Troponin I Pending Coagulation APTT Pending 05/12 0946 Chemistry Sodium (137 - 145 mmol/L) 141 Potassium (3.5 - 5.1 mmol/L) 4.2 Chloride (98 - 107 mmol/L) 105 Carbon Dioxide (22 - 30 mmol/L) 22 Anion Gap (5 - 16) 14 BUN (7 - 17 mg/dL) 14 Creatinine (0.5 - 1.0 mg/dL) 0.8 Estimated GFR (>60 ml/min) > 60 BUN/Creatinine Ratio (7 - 25 %) 17.5 Glucose (65 - 99 mg/dL) 106 H Calcium (8.4 - 10.2 mg/dL) 9.3 Total Bilirubin (0.2 - 1.3 mg/dL) 1.1 AST (14 - 36 U/L) 34 ALT (9 - 52 U/L) 58 H Alkaline Phosphatase (<127 U/L) 190 H Troponin I (< 0.11 ng/ml) < 0.01 Total Protein (6.3 - 8.2 g/dL) 6.5 Albumin (3.5 - 5.0 g/dL) 3.5 Globulin (1.9 - 4.2 gm/dL) 3.0 Albumin/Globulin Ratio (1.1 - 2.2 %) 1.2 Amylase (30 - 110 U/L) 37 Lipase (23 - 300 U/L) 46 Coagulation PT (9.4 - 12.5 SEC) 12.7 H INR (0.90 - 1.19) 1.21 H APTT (25 - 37 SEC) 32 D-Dimer High Sensitivty (0 - 243 ng/ml) 4029 H Hematology CBC w Diff NO MAN DIFF REQ WBC (4.8 - 10.8 /CUMM) 11.7 H RBC (4.20 - 5.40 /CUMM) 4.66 Hgb (12.0 - 16.0 G/DL) 14.3 Hct (37 - 47 %) 43.1 MCV (81.0 - 99.0 FL) 92.5 MCH (27.0 - 31.0 PG) 30.8 RDW (11.5 - 14.5 %) 13.0 Plt Count (130 - 400 /CUMM) 319 MPV (7.4 - 10.4 FL) 7.7 Gran % (42.2 - 75.2 %) 85.0 H Lymphocytes % (20.5 - 51.1 %) 9.1 L Monocytes % (1.7 - 9.3 %) 4.8 Eosinophils % (0 - 5 %) 0.8 Basophils % (0.0 - 2.0 %) 0.3 Absolute Granulocytes (1.4 - 6.5 /CUMM) 10.0 H Absolute Lymphocytes (1.2 - 3.4 /CUMM) 1.1 L Absolute Monocytes (0.10 - 0.60 /CUMM) 0.6 Absolute Eosinophils (0.0 - 0.7 /CUMM) 0.1 Absolute Basophils (0.0 - 0.2 /CUMM) 0 PUBS MCHC (33.0 - 37.0 G/DL) 33.3 Diagnostic Data EKG Results EKG tracing is independently reviewed, and reveals normal sinus rhythm at 65 with left ventricular hypertrophy or possible inferior infarct age undetermined Other Results Echocardiogram 08/06/16: Normal LV size and systolic function. Mild LVH. LVEF 63%. Mild diastolic dysfunction. Mild AI. Mild MR. Mild TR. No evidence of pulmonary hypertension. CTA chest: 1. Pulmonary embolism to the lobar branch of the left lung supplying the lower lobe. Segmental pulmonary emboli in the right lower lobe. 2. Either left lower lobe pneumonia or evolving pulmonary infarction in the left lower lobe. Small left pleural effusion. 3. Cholelithiasis. 4. Large peripelvic intrarenal sinus cysts, left greater than right. On the left side, hydronephrosis is simulated. 5. Numerous surgical clips in the lower abdomen and both sides of the pelvis. Lower extremity doppler study: Left: There is occlusive thrombus in the included portions of the left common femoral, femoral, and upper popliteal vein. The mid to lower left popliteal vein demonstrates some nonocclusive thrombus. Right: Respiratory variation, normal compression and augmented flow are noted throughout the lower extremities. The visualized common femoral vein, superficial femoral vein, profunda femoral vein, popliteal vein and midcalf peroneal and posterior tibial venous segments show no evidence of deep venous thrombosis. Assessment/Plan Assessment/Plan Assessment: 1. Hypertension, controlled 2. History of uterine cancer, status post surgery and radiation therapy 3. Acute pulmonary embolism with possible pulmonary infarct 4. Deep vein thrombosis Plan: * IV heparin per protocol * Hypercoagulability workup * Echocardiogram * Would eventually transition to Eliquis or other oral anticoagulation. * Continue other cardiac medications Consult Acknowledgment - Thank you for your consult request.
[2017-05-12 20:27] LABS: PTT 51 SEC (25-37)
[2017-05-13 01:38] VITALS: BP 134/66
[2017-05-13 03:52] LABS: PTT 108 SEC (25-37)
[2017-05-13 07:04] VITALS: BP 138/60
--- NOTE | 2017-05-13 07:16 | PN- Housestaff ---
Subjective Follow-up For: Pulmonary embolism Extensive DVT in the left lower extremity Review of Systems Constitutional: Denies: chills, fever. Cardiovascular: Denies: chest pain, palpitations. Respiratory: Denies: cough, short of breath. Gastrointestinal: Denies: abdominal pain, nausea, vomiting. Objective Last 24 Hrs of Vital Signs/I&O Vital Signs Date Time Temp Pulse Resp B/P B/P Pulse O2 O2 Flow FiO2 Mean Ox Delivery Rate 05/13 0704 98.7 77 16 138/60 97 Room Air 05/13 0138 98.7 70 16 134/66 97 Room Air 05/12 1600 96 Room Air 05/12 1459 99.2 70 16 146/70 95 Room Air 05/12 1351 68 20 137/63 94 Room Air 05/12 1130 97.1 67 20 122/60 95 Room Air 05/12 1040 97.0 58 18 112/56 94 Room Air 05/12 1012 97.0 62 8 102/54 98 Room Air 05/12 0906 98.5 69 20 141/96 93 Room Air Intake & Output 05/13 0800 05/13 0000 05/12 1600 Intake Total 384 650 Output Total 450 Balance 384 200 Intake, IV 184 250 Intake, Oral 200 400 Number 0 Bowel Movements Output, Urine 450 Patient 244 lb Weight Weight Reported by Patient Measurement Method Physical Exam General Appearance: Alert, Oriented X3, Cooperative Skin: Chronic hair loss HEENT: Atraumatic Neck: Supple Cardiovascular: Regular Rate, Normal S1, Normal S2, No Murmurs Lungs: Clear to Auscultation, Normal Air Movement Abdomen: Normal Bowel Sounds, Soft, No Tenderness Neurological: Normal Speech, Normal Tone, Sensation Intact Extremities: Chronic non pitting edema Vascular: Normal Pulses Current Medications: Current Medications Sig/Bev Start time Last Medication Dose Route Stop Time Status Admin Acetaminophen 650 MG Q6P PRN 05/12 1315 AC PO Aspirin 81 MG DAILY 05/13 1000 AC PO Atorvastatin Calcium 40 MG DAILY 05/13 1000 AC PO Ceftazidime 0 .STK-MED ONE 05/12 1359 DC .ROUTE Cholecalciferol 2,000 IU DAILY 05/13 1000 AC PO Cyanocobalamin 1,000 MCG DAILY 05/13 1000 AC PO Ezetimibe 10 MG DAILY 05/13 1000 AC PO Heparin Sodium 5,000 UNIT .STK-MED ONE 06/26 2044 DC (Porcine) IV 05/12 2045 Heparin Sodium 4,445.2 UNIT ONCE ONE 05/126 DC 05/12 (Porcine) IV 05/12 Heparin Sodium 0 .STK-MED ONE 05/12 1232 DC (Porcine) .ROUTE Heparin Sodium 5,000 UNIT ONCE ONE 05/12 1145 DC 05/12 (Porcine) IV 05/12 1146 1236 Heparin Sodium 25,000 UNIT Q24H 05/12 1145 AC 05/12 (Porcine) IV 1236 Sodium Chloride 500 ML Losartan Potassium 37.5 MG DAILY 05/13 1000 AC PO Morphine Sulfate 0.5 MG Q6P PRN 05/12 1315 AC IV Morphine Sulfate 6 MG ONCE ONE 05/12 1015 DC 05/12 IV 05/12 1016 1009 Morphine Sulfate 0 .STK-MED ONE 05/12 1013 DC .ROUTE Oxycodone HCl 5 MG Q6P PRN 05/12 1315 AC 05/12 PO 2206 Last 24 Hrs of Lab/Terence Results Last 24 Hrs of Labs/Mics: Laboratory Tests 05/13/17 0622: Sodium Pending, Potassium Pending, Chloride Pending, Carbon Dioxide Pending, Anion Gap Pending, BUN Pending, Creatinine Pending, BUN/Creatinine Ratio Pending , PT Pending, INR Pending, CBC w Diff Pending, WBC Pending, RBC Pending, Hgb Pending, Hct Pending, MCV Pending, MCH Pending, RDW Pending, Plt Count Pending, MPV Pending, PUBS MCHC Pending 05/13/17 0230: APTT 108 *H 05/12/17 1850: Troponin I < 0.01, APTT 51 H 05/12/17 1246: Lactic Acid Cancelled 05/12/17 0946: Lactic Acid 1.6 05/12/17 0946: Anion Gap 14, Estimated GFR > 60, BUN/Creatinine Ratio 17.5, Glucose 106 H, Calcium 9.3, Total Bilirubin 1.1, AST 34, ALT 58 H, Alkaline Phosphatase 190 H , Troponin I < 0.01, Total Protein 6.5, Albumin 3.5, Globulin 3.0, Albumin/ Globulin Ratio 1.2, Amylase 37, Lipase 46, PT 12.7 H, INR 1.21 H, APTT 32, D- Dimer High Sensitivty 4029 H, CBC w Diff NO MAN DIFF REQ, RBC 4.66, MCV 92.5, MCH 30.8, RDW 13.0, MPV 7.7, Gran % 85.0 H, Lymphocytes % 9.1 L, Monocytes % 4.8, Eosinophils % 0.8, Basophils % 0.3, Absolute Granulocytes 10.0 H, Absolute Lymphocytes 1.1 L, Absolute Monocytes 0.6, Absolute Eosinophils 0.1, Absolute Basophils 0, PUBS MCHC 33.3 Lines/Diet/Fluids Lines: peripheral lines Assessment/Plan Assessment: 71-year-old female with past medical history of obesity, significant for Uterine CA s/p Hysterectomy 2000 s/p radiation therapy 2002, hair loss and Right leg lyphedema post cancer tx, inflammatory and hamartomatous polyps on colonoscopy 2013, hypertension on Benicar, hyperlipidemia on atorvastatin, DJD sleeps in a recliner chair, h/o Breast lesions came to emergency department with chief complaint of pain under left breast for the last 1 week. Vitals in emergency department patient afebrile, no tachypnea, no tachycardia, systolic blood pressure 102-122 and diastolic blood pressure 54-60. Labs significant for mild leukocytosis 11.7, granulocytes 85%, no significant electrolyte abnormality, ALT 58, alkaline phosphatase 190, troponin less than 0.01, normal lipase and amylase INR of 1.21 d-dimer of 4029. Imaging showed, Pulmonary embolism to the lobar branch of the left lung supplying the lower lobe. Segmental pulmonary emboli in the right lower lobe. Either left lower lobe pneumonia or evolving pulmonary infarction in the left lower lobe. Small left pleural effusion. Cholelithiasis. Numerous surgical clips in the lower abdomen and both sides of the pelvis. Doppler ultrasound showed, Left: There is occlusive thrombus in the included portions of the left common femoral, femoral, and upper popliteal vein. The mid to lower left popliteal vein demonstrates some nonocclusive thrombus. Patient was admitted on telemetry floor for the management of following problems Extensive DVT /Pulmonary embolism in the setting of Uterince cancer s/p Hysterectomy 2000 and morbid obesity Vascular surgery was consulted and informed about the extensive DVT in left lower extremity. Patient is already on IV heparin. We'll continue with anticoagulation. Patient does not appear to be a great candidate for thrombolysis but given the extensive clot burden IVC filter can be placed to prevent future episodes of pulmonary embolism. Echocardiogram is pending to rule out right heart strain. 2 sets of troponin negative. Cardiology following. Patient would eventually be switched to oral anticoagulation as permitted by her insurance. Patient is full code Patient is on IV heparin for DVT prophylaxis Patient is on heart healthy diet Patient is on pain management Problem List: 1. Pulmonary embolism Pain Ratin Pain Location: NA Pain Goal: Pain 4 or less Pain Plan: Continue current pain medications Tomorrow's Labs & Rationales: CBC to assess platelets BEP to monitor renal function DVT/Prophylaxis: pharmacological
[2017-05-13 08:00] LABS: ABSOLUTE BASOPHIL COUNT 0 /CUMM (0.0-0.2); ABSOLUTE EOSINOPHIL COUNT 0.3 /CUMM (0.0-0.7); ABSOLUTE GRANULOCYTE CT 7.1 /CUMM (1.4-6.5); ABSOLUTE LYMPH COUNT 1.3 /CUMM (1.2-3.4); ABSOLUTE MONOCYTE COUNT 0.8 /CUMM (0.10-0.60); EOSINOPHIL % 3.5 % (0-5); WHITE BLOOD CELL COUNT 9.6 /CUMM (4.8-10.8)
[2017-05-13 08:15] LABS: PT 13.1 SEC (9.4-12.5)
[2017-05-13 08:29] LABS: BASOPHIL % 0.2 % (0.0-2.0); GRANULOCYTE % 73.8 % (42.2-75.2); MEAN CORPUSCULAR HGB CONC 33.2 G/DL (33.0-37.0); MEAN CORPUSCULAR VOLUME 93.5 FL (81.0-99.0); PLATELET COUNT 285 /CUMM (130-400); RBC DISTRIBUTION WIDTH 12.8 % (11.5-14.5); RED BLOOD CELL CT 3.92 /CUMM (4.20-5.40)
[2017-05-13 08:31] LABS: HEMATOCRIT 36.6 % (37-47)
--- NOTE | 2017-05-13 12:24 | PN- Cardiology ---
Subjective Subjective: The patient reports that she is feeling somewhat better. Pain is improving. Her shortness of breath is improving. No palpitations. No nausea or vomiting. Objective Vital Signs and I&Os Vital Signs Date Time Temp Pulse Resp B/P B/P Pulse O2 O2 Flow FiO2 Mean Ox Delivery Rate 05/13 0704 98.7 77 16 138/60 97 Room Air 05/13 0138 98.7 70 16 134/66 97 Room Air 05/12 1600 96 Room Air 05/12 1459 99.2 70 16 146/70 95 Room Air 05/12 1351 68 20 137/63 94 Room Air Intake & Output 05/13 1600 05/13 0800 05/13 0000 05/12 1600 05/12 0800 05/12 0000 Intake Total 384 650 Output Total 450 Balance 384 200 Intake, IV 184 250 Intake, Oral 200 400 Number 0 Bowel Movements Output, Urine 450 Patient 244 lb Weight Weight Reported by Patient Measurement Method Physical Exam: Gen: The patient is in no acute distress HEENT: Normal nose, ears, and oropharynx. Pupils equal bilaterally. Conjunctiva normal. Neck: Supple with no JVD, no masses, and no thyromegaly Lungs: Clear to auscultation with normal respiratory effort Heart: RRR, S1, S2, 2/6 systolic murmur. 1+ peripheral edema, right > left, 2+ pulses in the lower extremities bilaterally Abdomen: Soft, nontender, no masses. No hepatomegaly. No splenomegaly Extremities: No clubbing or cyanosis. Normal muscle strength in the upper and lower extremities Skin: Normal skin turgor with no skin ulcers or lesions noted. Neuro: Cranial nerves intact. Sensation intact Current Medications: Current Medications Sig/Bev Start time Last Medication Dose Route Stop Time Status Admin Acetaminophen 650 MG Q6P PRN 05/12 1315 AC PO Aspirin 81 MG DAILY 05/13 1000 AC 05/13 PO 1115 Atorvastatin Calcium 40 MG DAILY 05/13 1000 AC 05/13 PO 1116 Ceftazidime 0 .STK-MED ONE 05/12 1359 DC .ROUTE Cholecalciferol 2,000 IU DAILY 05/13 1000 AC 05/13 PO 1117 Cyanocobalamin 1,000 MCG DAILY 05/13 1000 AC 05/13 PO 1116 Ezetimibe 10 MG DAILY 05/13 1000 AC 05/13 PO 1117 Heparin Sodium 5,000 UNIT .STK-MED ONE 05/12 2044 DC (Porcine) IV 05/12 2045 Heparin Sodium 4,445.2 UNIT ONCE ONE 05/12 2036 DC 05/12 (Porcine) IV 05/12 Heparin Sodium 0 .STK-MED ONE 05/12 1232 DC (Porcine) .ROUTE Heparin Sodium 25,000 UNIT Q24H 05/12 1145 AC 05/12 (Porcine) IV 1236 Sodium Chloride 500 ML Losartan Potassium 37.5 MG DAILY 05/13 1000 AC 05/13 PO 1115 Morphine Sulfate 0.5 MG Q6P PRN 05/12 1315 AC IV Oxycodone HCl 5 MG Q6P PRN 05/12 1315 AC 05/12 PO 2206 Results Last 48 Hrs of Labs/Mics: Laboratory Tests 05/13/17 1140: APTT Pending 05/13/17 0622: Anion Gap 8, Estimated GFR > 60, BUN/Creatinine Ratio 21.3, PT 13.1 H, INR 1.25 H, CBC w Diff NO MAN DIFF REQ, RBC 3.92 L, MCV 93.5, MCH 31.0, RDW 12.8, MPV 8.0, Gran % 73.8, Lymphocytes % 14.0 L, Monocytes % 8.5, Eosinophils % 3.5, Basophils % 0.2, Absolute Granulocytes 7.1 H, Absolute Lymphocytes 1.3, Absolute Monocytes 0.8 H, Absolute Eosinophils 0.3, Absolute Basophils 0, PUBS MCHC 33.2 05/13/17 0230: APTT 108 *H 05/12/17 1850: Troponin I < 0.01, APTT 51 H 05/12/17 1246: Lactic Acid Cancelled 05/12/17 0946: Lactic Acid 1.6 05/12/17 0946: Anion Gap 14, Estimated GFR > 60, BUN/Creatinine Ratio 17.5, Glucose 106 H, Calcium 9.3, Total Bilirubin 1.1, AST 34, ALT 58 H, Alkaline Phosphatase 190 H , Troponin I < 0.01, Total Protein 6.5, Albumin 3.5, Globulin 3.0, Albumin/ Globulin Ratio 1.2, Amylase 37, Lipase 46, PT 12.7 H, INR 1.21 H, APTT 32, D- Dimer High Sensitivty 4029 H, CBC w Diff NO MAN DIFF REQ, RBC 4.66, MCV 92.5, MCH 30.8, RDW 13.0, MPV 7.7, Gran % 85.0 H, Lymphocytes % 9.1 L, Monocytes % 4.8, Eosinophils % 0.8, Basophils % 0.3, Absolute Granulocytes 10.0 H, Absolute Lymphocytes 1.1 L, Absolute Monocytes 0.6, Absolute Eosinophils 0.1, Absolute Basophils 0, PUBS MCHC 33.3 Assessment/Plan Assessment/Plan Assessment: 1. Hypertension, controlled 2. History of uterine cancer, status post surgery and radiation therapy 3. Acute pulmonary embolism with possible pulmonary infarct 4. Deep vein thrombosis Plan: * IV heparin per protocol * Hypercoagulability workup * Echocardiogram * Vascular surgery consult pending for possible IVC filter placement * Would eventually transition to Eliquis or other oral anticoagulation. * Continue other cardiac medications Continue telemetry? Yes
--- NOTE | 2017-05-13 12:27 | Cons- Vascular Surgery ---
General Information and HPI Consulting Request Date of Consult: 05/13/17 Requested By: DORIS ARAGON MD History of Present Illness: 71-year-old lady with history of uterine cancer status post resection and radiation in 2000, hypertension and lymphedema was worked up for left S pain. She was found to have bilateral pulmonary embolism. Lower extremity venous duplex showed left common femoral vein, femoral vein and popliteal vein thrombosis. She denies any left leg pain or swelling. There is no other prior venous ultrasound. Allergies/Medications Allergies: Coded Allergies: No Known Allergies (01/31/17) Home Med List: Aspirin (Aspirin*) 81 MG TAB.CHEW 1 TAB PO DAILY HEART HEALTH (Reported) Atorvastatin Calcium 40 MG TABLET 1 TAB PO DAILY CHOLESTEROL (Reported) Biotin 10,000 MCG CAPSULE 1 CAP PO DAILY SUPPLEMENT (Reported) Cholecalciferol (Vitamin D3) (Vitamin D3) 2,000 UNIT TABLET 1 TAB PO DAILY SUPPLEMENT (Reported) Cyanocobalamin (Vitamin B-12) 1,000 MCG TABLET 1 TAB PO DAILY SUPPLEMENT ( Reported) Ezetimibe (Zetia) 10 MG TABLET 1 TAB PO DAILY CHOLESTEROL (Reported) Olmesartan Medoxomil (Benicar) 20 MG TABLET 0.5 TAB PO DAILY HEART (Reported) Past History Medical History Blood Transfusion Hx: No Neurological: NONE EENT: NONE Cardiovascular: hypertension, hyperlipidemia Respiratory: pulmonary embolism Gastrointestinal: NONE Hepatic: NONE Renal: NONE Musculoskeletal: NONE Psychiatric: NONE Endocrine: NONE Cancer(s): UTERINE CA Surgical History Pertinent Surgical History: hysterectomy, ADENOIDS (as a child) Family History Relations & Conditions If Any: FATHER FH: congestive heart failure, Onset: 60+. MOTHER FH: cancer, Onset: 50-60. Psychosocial History Where Do You Live? Home Smoking Status: Never Smoked ETOH Use: denies use Illicit Drug Use: denies illicit drug use Functional Ability ADLs Independent: dressing, eating, toileting, bathing. Ambulation: independent IADLs Independent: shopping, housework, finances, food prep, telephone, transportation , medication admin. Review of Systems Review of Systems: Patient denies headache, dizziness, cough, palpitation, diarrhea or constipation Exam & Diagnostic Data Vital Signs and I&O Vital Signs Date Time Temp Pulse Resp B/P B/P Pulse O2 O2 Flow FiO2 Mean Ox Delivery Rate 05/13 0704 98.7 77 16 138/60 97 Room Air 06/27 0138 98.7 70 16 134/66 97 Room Air 05/12 1600 96 Room Air 05/12 1459 99.2 70 16 146/70 95 Room Air 05/12 1351 68 20 137/63 94 Room Air Intake & Output 05/13 1600 05/13 0800 05/13 0000 05/12 1600 05/12 0800 05/12 0000 Intake Total 384 650 Output Total 450 Balance 384 200 Intake, IV 184 250 Intake, Oral 200 400 Number 0 Bowel Movements Output, Urine 450 Patient 244 lb Weight Weight Reported by Patient Measurement Method Physical Exam: Patient is alert and oriented 3. He is slightly hard of hearing Lungs: Clear to auscultation bilaterally Cardiovascular: Regular rate and rhythm Abdomen: Soft, obese, nontender nondistended Extremities: Bilateral legs are soft to touch with no skin discoloration. Right leg is larger in diameter in compared to the left. Assessment/Plan Assessment/Plan 71-year-old lady with left lower extremity DVT and PE on anticoagulation with heparin. She is on room air. She has been seen by cardiology. There is no evidence of right heart strain. Her main risk factor for VTE is cancer. There has not been any hypercoagulable workup so far. There is no indication for IVC filter as the patient is being able to be anticoagulated. She may benefit from venogram and thrombolysis in the near future in order to prevent future post phlebitic syndrome. Vascular procedure will not be performed this week. It can be done in the next couple of weeks. -I will try to find available time in the operating room. -If the patient remains in the hospital by that time that it will be done as inpatient. Otherwise, the procedure will be done as outpatient. She should be discharged on oral anticoagulation. -If she does have active cancer, thrombolsis may be risky. -There is no indication for IVC filter unless there is contraindications to anticoagulation. Thank you for asking me to be involved in the care of this patient Consult Acknowledgment - Thank you for your consult request.
[2017-05-13 13:06] LABS: PTT 56 SEC (25-37)
[2017-05-13 14:25] VITALS: BP 118/70
--- NOTE | 2017-05-13 15:52 | PN- Att Addend ---
Attending Addendum Attending Brief Note Patient seen and examined. Plan of care discussed with the medical team and the patient. Available lab work and radiology test reports were reviewed. Patient denies any leg pain recent fever chills nausea vomiting or abdominal pain. She appears comfortable at rest. Vital Signs Date Time Temp Pulse Resp B/P B/P Pulse O2 O2 Flow FiO2 Mean Ox Delivery Rate 05/13 1425 98.0 62 20 118/70 91 Room Air 05/13 0704 98.7 77 16 138/60 97 Room Air 05/13 0138 98.7 70 16 134/66 97 Room Air 05/12 1600 96 Room Air Intake & Output 05/13 1600 05/13 0800 05/13 0000 Intake Total 384 650 Output Total 450 Balance 384 200 Intake, IV 184 250 Intake, Oral 200 400 Number 0 Bowel Movements Output, Urine 450 Patient 244 lb Weight Weight Reported by Patient Measurement Method Exam: General: Patient awake alert oriented without any distress CVS: S1 plus S2 without any murmur or gallops Chest: Few scattered crepitation without any wheeze. There is no respiratory distress. Abdomen: Soft nontender, bowel sound present, no guarding or rebound [employer]ETING: Awake alert oriented without any focal neuro deficit and follows command appropriately Extremities: No edema; no clubbing or cyanosis noted; or popliteal tenderness noted Ultrasound leg Extensive deep venous thrombosis in the left lower extremity. CTA 1. Pulmonary embolism to the lobar branch of the left lung supplying the lower lobe. Segmental pulmonary emboli in the right lower lobe. 2. Either left lower lobe pneumonia or evolving pulmonary infarction in the left lower lobe. Small left pleural effusion. 3. Cholelithiasis. 4. Large peripelvic intrarenal sinus cysts, left greater than right. On the left side, hydronephrosis is simulated. 5. Numerous surgical clips in the lower abdomen and both sides of the pelvis. Assessment * Pulmonary emboli to multiple lobes * Left leg DVT extensive-patient seen by [facility] surgery and no intervention is recommended * Uterine CA status post hysterectomy * Obesity * Hypertension * Hyperlipidemia Plan * Switch to eliquis and stop heparin 2-4 hours after starting eliquis- patient likely will need 3-6 month of treatment. I reviewed history again with patient. There does not appear to be any acute predisposing factors. Age-appropriate cancer screening is recommended. * Continue to monitor the floor * Out of bed and ambulate * Possible discharge tomorrow * Pt seen by [facility] surgery. Consult is appreciated. Plan noted for potential venogram and thrombolysis in near future as outpatient.
[2017-05-13 22:21] VITALS: BP 114/70
[2017-05-14 06:53] VITALS: BP 120/70
--- NOTE | 2017-05-14 07:31 | PN- Housestaff ---
Subjective Follow-up For: Pulmonary embolism Extensive DVT in the left lower extremity Complaints: no complaints Review of Systems Constitutional: Denies: chills, fever. Cardiovascular: Denies: chest pain, palpitations. Respiratory: Denies: cough, short of breath. Gastrointestinal: Denies: abdominal pain, nausea, vomiting. Genitourinary: Denies: dysuria. Objective Last 24 Hrs of Vital Signs/I&O Vital Signs Date Time Temp Pulse Resp B/P B/P Pulse O2 O2 Flow FiO2 Mean Ox Delivery Rate 05/14 0653 99.5 57 20 120/70 92 Room Air 05/13 2221 98.9 62 20 114/70 92 Room Air 05/13 1425 98.0 62 20 118/70 91 Room Air Intake & Output 05/14 0800 05/14 0000 05/13 1600 Intake Total 120 320 698 Output Total 400 Balance -280 320 698 Intake, IV 20 218 Intake, Oral 120 300 480 Output, Urine 400 Physical Exam General Appearance: Alert, Oriented X3, Cooperative Skin: No Rashes HEENT: Atraumatic Neck: Supple Cardiovascular: Regular Rate, Normal S1, Normal S2 Lungs: Clear to Auscultation, Normal Air Movement Abdomen: Normal Bowel Sounds, Soft, No Tenderness Neurological: Normal Speech, Normal Tone, Sensation Intact Extremities: No Clubbing, No Cyanosis, No Edema Vascular: Normal Pulses Current Medications: Current Medications Sig/Bev Start time Last Medication Dose Route Stop Time Status Admin Acetaminophen 650 MG Q6P PRN 05/12 1315 AC PO Apixaban 10 MG BID 05/13 1345 AC 05/13 PO 2219 Aspirin 81 MG DAILY 05/13 1000 AC 05/13 PO 1115 Atorvastatin Calcium 40 MG DAILY 05/13 1000 AC 05/13 PO 1116 Cholecalciferol 2,000 IU DAILY 05/13 1000 AC 05/13 PO 1117 Cyanocobalamin 1,000 MCG DAILY 05/13 1000 AC 05/13 PO 1116 Ezetimibe 10 MG DAILY 05/13 1000 AC 05/13 PO 1117 Heparin Sodium 25,000 UNIT Q24H 05/12 1145 DC 05/12 (Porcine) IV 05/13 1500 1236 Sodium Chloride 500 ML Losartan Potassium 37.5 MG DAILY 05/13 1000 AC 05/13 PO 1115 Morphine Sulfate 0.5 MG Q6P PRN 05/12 1315 AC 05/13 IV 1636 Oxycodone HCl 5 MG Q6P PRN 05/12 1315 AC 05/12 PO 2206 Patient Medication 1 ED .[facility] ONE 05/13 1416 [facility] ED 05/13 1417 Last 24 Hrs of Lab/Terence Results Last 24 Hrs of Labs/Mics: Laboratory Tests 05/14/17 0619: Sodium Pending, Potassium Pending, Chloride Pending, Carbon Dioxide Pending, Anion Gap Pending, BUN Pending, Creatinine Pending, BUN/Creatinine Ratio Pending , CBC w Diff Pending, WBC Pending, RBC Pending, Hgb Pending, Hct Pending, MCV Pending, MCH Pending, RDW Pending, Plt Count Pending, MPV Pending, PUBS MCHC Pending 05/13/17 1140: APTT 56 H Lines/Diet/Fluids Lines: peripheral lines Restraints: none Assessment/Plan Assessment: 71-year-old female with past medical history of obesity, significant for Uterine CA s/p Hysterectomy 2000 s/p radiation therapy 2002, hair loss and Right leg lyphedema post cancer tx, inflammatory and hamartomatous polyps on colonoscopy 2013, hypertension on Benicar, hyperlipidemia on atorvastatin, DJD sleeps in a recliner chair, h/o Breast lesions came to emergency department with chief complaint of pain under left breast for the last 1 week. Vitals in emergency department patient afebrile, no tachypnea, no tachycardia, systolic blood pressure 102-122 and diastolic blood pressure 54-60. Labs significant for mild leukocytosis 11.7, granulocytes 85%, no significant electrolyte abnormality, ALT 58, alkaline phosphatase 190, troponin less than 0.01, normal lipase and amylase INR of 1.21 d-dimer of 4029. Imaging showed, Pulmonary embolism to the lobar branch of the left lung supplying the lower lobe. Segmental pulmonary emboli in the right lower lobe. Either left lower lobe pneumonia or evolving pulmonary infarction in the left lower lobe. Small left pleural effusion. Cholelithiasis. Numerous surgical clips in the lower abdomen and both sides of the pelvis. Doppler ultrasound showed, Left: There is occlusive thrombus in the included portions of the left common femoral, femoral, and upper popliteal vein. The mid to lower left popliteal vein demonstrates some nonocclusive thrombus. Patient was admitted on telemetry floor for the management of following problems Extensive DVT /Pulmonary embolism in the setting of Uterince cancer s/p Hysterectomy 2000 and morbid obesity Vascular surgery was consulted and informed about the extensive DVT in left lower extremity. Patient was initially on IV heparin which was switched to Eliquis yesterday. We'll continue with anticoagulation for at least 3-6 months as this is an unprovoked DVT/PE. She may benefit from venogram and thrombolysis in the near future in order to prevent future post phlebitic syndrome as per vascular surgery. Echocardiogram is pending to rule out right heart strain. 2 sets of troponin negative. Cardiology following. Patient is full code Patient is on IV heparin for DVT prophylaxis Patient is on heart healthy diet Patient is on pain management Problem List: 1. Pulmonary embolism Pain Ratin Pain Location: NA Pain Goal: Pain 4 or less Pain Plan: Continue current pain management Tomorrow's Labs & Rationales: Not needed as patient might be discharged
[2017-05-14 08:00] LABS: ABSOLUTE BASOPHIL COUNT 0 /CUMM (0.0-0.2); ABSOLUTE EOSINOPHIL COUNT 0.6 /CUMM (0.0-0.7); ABSOLUTE GRANULOCYTE CT 6.3 /CUMM (1.4-6.5); ABSOLUTE LYMPH COUNT 1.2 /CUMM (1.2-3.4); ABSOLUTE MONOCYTE COUNT 0.8 /CUMM (0.10-0.60); BASOPHIL % 0.5 % (0.0-2.0); EOSINOPHIL % 6.5 % (0-5); GRANULOCYTE % 70.8 % (42.2-75.2); MEAN CORPUSCULAR HGB 30.8 PG (27.0-31.0); MEAN CORPUSCULAR HGB CONC 32.7 G/DL (33.0-37.0); MEAN PLATELET VOLUME 7.3 FL (7.4-10.4); PLATELET COUNT 313 /CUMM (130-400); RED BLOOD CELL CT 4.05 /CUMM (4.20-5.40); WHITE BLOOD CELL COUNT 8.9 /CUMM (4.8-10.8)
--- NOTE | 2017-05-14 08:30 | PN- Att Addend ---
Attending Addendum Attending Brief Note Patient seen and examined. Plan of care discussed with the medical team and the patient. Available lab work and radiology test reports were reviewed. Patient denies any leg pain recent fever chills nausea vomiting or abdominal pain. She appears comfortable at rest. She has been ambulate in the bathroom without any difficulty. She denies any leg or calf pain. Her pain and left chest area has decreased. Vital Signs Date Time Temp Pulse Resp B/P B/P Pulse O2 O2 Flow FiO2 Mean Ox Delivery Rate 05/14 0653 99.5 57 20 120/70 92 Room Air 05/13 2221 98.9 62 20 114/70 92 Room Air 05/13 1425 98.0 62 20 118/70 91 Room Air Intake & Output 05/14 1600 05/14 0800 05/14 0000 Intake Total 120 320 Output Total 400 Balance -280 320 Intake, IV 20 Intake, Oral 120 300 Output, Urine 400 Exam: General: Patient awake alert oriented without any distress CVS: S1 plus S2 without any murmur or gallops Chest: Few scattered crepitation without any wheeze. There is no respiratory distress. Abdomen: Soft nontender, bowel sound present, no guarding or rebound METAL TURNER: Awake alert oriented without any focal neuro deficit and follows command appropriately Extremities: No edema; no clubbing or cyanosis noted; or popliteal tenderness noted Ultrasound leg Extensive deep venous thrombosis in the left lower extremity. CTA 1. Pulmonary embolism to the lobar branch of the left lung supplying the lower lobe. Segmental pulmonary emboli in the right lower lobe. 2. Either left lower lobe pneumonia or evolving pulmonary infarction in the left lower lobe. Small left pleural effusion. 3. Cholelithiasis. 4. Large peripelvic intrarenal sinus cysts, left greater than right. On the left side, hydronephrosis is simulated. 5. Numerous surgical clips in the lower abdomen and both sides of the pelvis. Laboratory Tests 05/14 05/13 0619 1140 Chemistry Sodium (137 - 145 mmol/L) 138 Potassium (3.5 - 5.1 mmol/L) 4.4 Chloride (98 - 107 mmol/L) 107 Carbon Dioxide (22 - 30 mmol/L) 24 Anion Gap (5 - 16) 7 BUN (7 - 17 mg/dL) 18 H Creatinine (0.5 - 1.0 mg/dL) 0.8 Estimated GFR (>60 ml/min) > 60 BUN/Creatinine Ratio (7 - 25 %) 22.5 Coagulation APTT (25 - 37 SEC) 56 H Hematology CBC w Diff NO MAN DIFF REQ WBC (4.8 - 10.8 /CUMM) 8.9 RBC (4.20 - 5.40 /CUMM) 4.05 L Hgb (12.0 - 16.0 G/DL) 12.5 Hct (37 - 47 %) 38.0 MCV (81.0 - 99.0 FL) 94.0 MCH (27.0 - 31.0 PG) 30.8 RDW (11.5 - 14.5 %) 13.0 Plt Count (130 - 400 /CUMM) 313 MPV (7.4 - 10.4 FL) 7.3 L Gran % (42.2 - 75.2 %) 70.8 Lymphocytes % (20.5 - 51.1 %) 13.1 L Monocytes % (1.7 - 9.3 %) 9.1 Eosinophils % (0 - 5 %) 6.5 H Basophils % (0.0 - 2.0 %) 0.5 Absolute Granulocytes (1.4 - 6.5 /CUMM) 6.3 Absolute Lymphocytes (1.2 - 3.4 /CUMM) 1.2 Absolute Monocytes (0.10 - 0.60 /CUMM) 0.8 H Absolute Eosinophils (0.0 - 0.7 /CUMM) 0.6 Absolute Basophils (0.0 - 0.2 /CUMM) 0 PUBS MCHC (33.0 - 37.0 G/DL) 32.7 L ssessment * Pulmonary emboli to multiple lobes * Left leg DVT extensive-patient seen by [facility] surgery and no intervention is recommended * Uterine CA status post hysterectomy * Obesity * Hypertension * Hyperlipidemia * Mild eosinophilia- patient does not have any rash or allergy symptoms therefore the significance eosinophilia is unclear Plan * Continue eliquis. patient likely will need 3-6 month of treatment. She should undergo a d-dimer testing in about 3 months and if d-dimer is elevated her treatment should be extended to 6 or 9 months. * I reviewed history again with patient. There does not appear to be any acute predisposing factors. Age-appropriate cancer screening is recommended at this time such as mammography and colonoscopy. Note the patient's last colonoscopy in September 2014 was negative for any cancer. * Apparently patient has not been seeing her primary care doctor and only follows up with a skip tender. * Out of bed and ambulate * Possible discharge today * Pt seen by [facility] surgery. Consult is appreciated. Plan noted for potential venogram and thrombolysis in near future as outpatient. Patient will follow with vascular surgery Total time spent in preparation for discharge plan, patient education, and CMR preparation was 35 minutes.
--- NOTE | 2017-05-14 10:29 | Patient Discharge Instructions ---
Discharge Instructions General Discharge Information You were seen/treated for: Pulmonary embolism Deep vein thrombosis Special Instructions: 1. Follow-up with primary care doctor in a week after discharge. 2. Follow-up with vascular surgeon after discharge 3. Continue Eliquis 10 mg by mouth twice a day 7 days followed by 5 mg by mouth twice a day 4. Please Follow up with Dr. Bennett in 2 weeks Diet Continue normal diet: Yes Recommended Diet: Heart Healthy Activity Full Activity/No Limits: No Activity Self Limited: Yes Acute Coronary Syndrome Inclusion Criteria At DC or during hospital stay patient has or had the following: ACS DIAGNOSIS No Discharge Core Measures Meds if any: Prescribed or Continued at Discharge Meds if any: NOT Prescribed or Continued at Discharge Congestive Heart Failure Inclusion Criteria At DC or during hospital stay patient has or had the following: CHF DIAGNOSIS No Discharge Core Measures Meds if any: Prescribed or Continued at Discharge Meds if any: NOT Prescribed or Continued at Discharge Cerebrovascular accident Inclusion Criteria At DC or during hospital stay patient has or had the following: CVA/TIA Diagnosis No Discharge Core Measures Meds if any: Prescribed or Continued at Discharge Meds if any: NOT Prescribed or Continued at Discharge Venous thromboembolism Inclusion Criteria VTE Diagnosis Yes VTE Type Pulmonary Embolism VTE Confirmed by (Test) CT CHEST ANGIOGRAM Discharge Core Measures - Per Current guidelines, there needs to be overlap - treatment for the first 5 days of Warfarin therapy. - If discharged on Warfarin prior to 5 days of - overlap therapy, the patient will need to be - assessed for post discharge needs including - *Post discharge parental anticoagulation - *Warfarin and/or parental anticoagulation education - *Follow up date to check INR post discharge At least 5 days overlap therapy as Inpatient No Why was Parental Med stopped Other Anticoagulant given Meds if any: Prescribed or Continued at Discharge Warfarin No Overlap Therapy No Note: Overlap Therapy is Warfarin and Anticoagulant Meds if any: NOT Prescribed or Continued at Discharge No Warfarin d/t Prescribed other Anticoag No Overlap Therapy d/t Prescribed other Anticoag
[2017-05-14] MEDS ORDERED: ELIQUIS5 M1 PO ×2 (10:35→10:40)
--- NOTE | 2017-05-14 11:29 | NUR ---
PT AMBULATED ON ROOM AIR FOR SHORT DISTANCE, APPROX. 100 FT. SaO2 REMAINED AT >95%. PT REPORTED SOB AND THE FEELING OF NOT BEING ABLE TO TAKE FULL DEEP BREATH. PT DID DISPLAY SOB WHILE AMBULATING
--- NOTE | 2017-05-14 14:18 | PN- Cardiology ---
Subjective Subjective: The patient reports that she is feeling somewhat better. Chest discomfort and shortness of breath improving. No palpitations. No diaphoresis. No lightheadedness or dizziness. Objective Vital Signs and I&Os Vital Signs Date Time Temp Pulse Resp B/P B/P Pulse O2 O2 Flow FiO2 Mean Ox Delivery Rate 05/14 0918 57 120/70 05/14 0653 99.5 57 20 120/70 92 Room Air 05/13 2221 98.9 62 20 114/70 92 Room Air 05/13 1425 98.0 62 20 118/70 91 Room Air Intake & Output 05/14 1600 05/14 0800 05/14 0000 05/13 1600 05/13 0800 05/13 0000 Intake Total 120 320 698 384 650 Output Total 400 450 Balance -280 320 698 384 200 Intake, IV 20 218 184 250 Intake, Oral 120 300 480 200 400 Number 0 Bowel Movements Output, Urine 400 450 Patient 244 lb Weight Weight Reported by Patient Measurement Method Physical Exam: Gen: The patient is in no acute distress HEENT: Normal nose, ears, and oropharynx. Pupils equal bilaterally. Conjunctiva normal. Neck: Supple with no JVD, no masses, and no thyromegaly Lungs: Clear to auscultation with normal respiratory effort Heart: RRR, S1, S2, 2/6 systolic murmur. 1+ peripheral edema, right > left, 2+ pulses in the lower extremities bilaterally Abdomen: Soft, nontender, no masses. No hepatomegaly. No splenomegaly Extremities: No clubbing or cyanosis. Normal muscle strength in the upper and lower extremities Skin: Normal skin turgor with no skin ulcers or lesions noted. Neuro: Cranial nerves intact. Sensation intact Current Medications: Current Medications Sig/Bev Start time Last Medication Dose Route Stop Time Status Admin Acetaminophen 650 MG Q6P PRN 05/12 1315 AC PO Apixaban 10 MG BID 05/13 1345 AC 05/14 PO 0918 Aspirin 81 MG DAILY 05/13 1000 AC 05/14 PO 0918 Atorvastatin Calcium 40 MG DAILY 05/13 1000 AC 05/14 PO 0918 Cholecalciferol 2,000 IU DAILY 05/13 1000 AC 05/14 PO 0918 Cyanocobalamin 1,000 MCG DAILY 05/13 1000 AC 05/14 PO 0918 Ezetimibe 10 MG DAILY 05/13 1000 AC 05/14 PO 0918 Heparin Sodium 25,000 UNIT Q24H 05/12 1145 DC 05/12 (Porcine) IV 05/13 1500 1236 Sodium Chloride 500 ML Losartan Potassium 37.5 MG DAILY 05/13 1000 AC 05/14 PO 0918 Morphine Sulfate 0.5 MG Q6P PRN 05/12 1315 AC 05/13 IV 1636 Oxycodone HCl 5 MG Q6P PRN 05/12 1315 AC 05/12 PO 2206 Patient Medication 1 ED .K-MED ONE 05/13 1416 [place] Teaching ED 05/13 1417 Results Last 48 Hrs of Labs/Mics: Laboratory Tests 05/14/17 0619: Anion Gap 7, Estimated GFR > 60, BUN/Creatinine Ratio 22.5, CBC w Diff NO MAN DIFF REQ, RBC 4.05 L, MCV 94.0, MCH 30.8, RDW 13.0, MPV 7.3 L, Gran % 70.8, Lymphocytes % 13.1 L, Monocytes % 9.1, Eosinophils % 6.5 H, Basophils % 0.5, Absolute Granulocytes 6.3, Absolute Lymphocytes 1.2, Absolute Monocytes 0.8 H, Absolute Eosinophils 0.6, Absolute Basophils 0, PUBS MCHC 32.7 L 05/13/17 1140: APTT 56 H 05/13/17 0622: Anion Gap 8, Estimated GFR > 60, BUN/Creatinine Ratio 21.3, PT 13.1 H, INR 1.25 H, CBC w Diff NO MAN DIFF REQ, RBC 3.92 L, MCV 93.5, MCH 31.0, RDW 12.8, MPV 8.0, Gran % 73.8, Lymphocytes % 14.0 L, Monocytes % 8.5, Eosinophils % 3.5, Basophils % 0.2, Absolute Granulocytes 7.1 H, Absolute Lymphocytes 1.3, Absolute Monocytes 0.8 H, Absolute Eosinophils 0.3, Absolute Basophils 0, PUBS MCHC 33.2 05/13/17 0230: APTT 108 *H 05/12/17 1850: Troponin I < 0.01, APTT 51 H Assessment/Plan Assessment/Plan Assessment: 1. Hypertension, controlled 2. History of uterine cancer, status post surgery and radiation therapy 3. Acute pulmonary embolism with possible pulmonary infarct 4. Deep vein thrombosis Plan: * Continue close 10 mg by mouth twice a day 7 days followed by 5 mg by mouth twice a day * Continue other cardiac medications. * Follow up with Dr. Bennett in 2 weeks Continue telemetry? Yes
--- NOTE | 2017-05-14 14:44 | ECHOCARDIOGRAM REPORT ---
JANET JIMENEZ Age: 71 : 1945 Gender: F Exam Date: 05/13/2017 15:58 Exam Location: 1 [address] Ht (in): 68 Wt (lb): 244 BSA: 2.35 BP: 138 / 60 Ordering Physician: JOSE RAMOS MD Referring Physician: Tobias Savage MD Technologist: Josie Leal [facility] Room Number: [id number] Indications: PULMONARY HYPERTENSION Rhythm: Sinus Technical Quality: Good FINDINGS Left Ventricle Normal size left ventricle. Normal left ventricular wall thickness. Normal left ventricular ejection fraction visually estimated at > 60%. Normal left ventricular wall motion. Right Ventricle Normal right ventricular size and function. Right Atrium Normal right atrial size. Left Atrium Normal left atrial size. Mitral Valve Mitral valve thickened. Mild mitral regurgitation. Aortic Valve Diffuse thickening (sclerosis) of the aortic valve cusps without reduced excursion. Mild aortic regurgitation. Tricuspid Valve Tricuspid valve not well visualized, grossly normal. Mild tricuspid regurgitation. No evidence of pulmonary hypertension. Pulmonic Valve Pulmonic valve not well visualized, grossly normal. Trace pulmonic regurgitation. Pericardium No pericardial effusion. Great Vessels Normal size aortic root. CONCLUSIONS Normal size left ventricle. Normal left ventricular wall thickness. Normal left ventricular ejection fraction visually estimated at > 60%. Mild mitral regurgitation. Mild aortic regurgitation. Mild tricuspid regurgitation. Trace pulmonic regurgitation. Tobias Savage M.D. (Electronically Signed) Final Date: 14 May 2017 14:44 MEASUREMENTS (Male / Female) Normal Values 2D ECHO LV Diastolic Diameter PLAX 4.6 cm 4.2 - 5.9 / 3.9 - 5.3 cm LV Systolic Diameter PLAX 2.9 cm 2.1 - 4.0 cm LV Fractional Shortening PLAX 37.0 % 25 - 46 % LV Ejection Fraction 2D Teich 66.9 % IVS Diastolic Thickness 1.0 cm LVPW Diastolic Thickness 1.0 cm LV Relative Wall Thickness 0.4 RV Internal Dim ED PLAX 1.9 cm 1.9 - 3.8 cm LVOT Diameter 2.0 cm Aortic Root Diameter 2.9 cm LA Systolic Diameter LX 3.8 cm 3.0 - 4.0 / 2.7 - 3.8 cm LA Volume 36.0 cm 18 - 58 / 22 - 52 cm Ascending Aorta Diameter 3.3 cm DOPPLER AV Peak Velocity 178.0 cm/s AV Peak Gradient 12.7 mmHg AV Mean Velocity 134.0 cm/s AV Mean Gradient 8.0 mmHg AV Velocity Time Integral 40.6 cm LVOT Peak Velocity 149.0 cm/s LVOT Peak Gradient 8.9 mmHg LVOT Mean Velocity 104.0 cm/s LVOT Mean Gradient 5.0 mmHg LVOT Velocity Time Integral 34.9 cm LVOT Stroke Volume 109.6 cm AV Area Cont Eq vti 2.7 cm AV Area Cont Eq pk 2.6 cm MV Peak Velocity 108.0 cm/s MV Peak Gradient 4.7 mmHg MV Mean Velocity 60.0 cm/s MV Mean Gradient 2.0 mmHg Mitral E Point Velocity 98.2 cm/s Mitral A Point Velocity 110.0 cm/s Mitral E to A Ratio 0.9 MV PHT Velocity 110.0 cm/s MV Deceleration Hooker 416.0 cm/s MV Pressure Half Time 79.3 ms MV Area PHT 2.8 cm MV Deceleration Time 211.0 ms TR Peak Velocity 280.0 cm/s TR Peak Gradient 31.4 mmHg Right Atrial Pressure 5.0 mmHg Pulmonary Artery Systolic Pressu 36.4 mmHg Right Ventricular Systolic Press 36.4 mmHg PV Peak Velocity 96.9 cm/s PV Peak Gradient 3.8 mmHg PV Mean Velocity 70.6 cm/s PV Mean Gradient 2.0 mmHg PV Velocity Time Integral 26.1 cm LV E' Lateral Velocity 10.9 cm/s Mitral E to LV E' Lateral Ratio 9.0 LV E' Septal Velocity 11.9 cm/s Mitral E to LV E' Septal Ratio 8.3
[2017-05-14 14:47] VITALS: BP 120/70
--- NOTE | 2017-05-14 15:08 | Discharge Summary ---
Visit Information Visit Dates Admission Date: 05/12/17 Discharge Date: 05/15/17 Hospital Course Course Attending Physician: KATY THAO,JACQUELINE Primary Care Physician: BELINDA THAO,FARRAH Heredia Consulting Request: Consulting Specialty: Thoracic/Vascular Surgery Hospital Course: 71-year-old female with past medical history of obesity, significant for Uterine CA s/p Hysterectomy 2000 s/p radiation therapy 2002, hair loss and Right leg lyphedema post cancer tx, inflammatory and hamartomatous polyps on colonoscopy 2013, hypertension on Benicar, hyperlipidemia on atorvastatin, DJD sleeps in a recliner chair, h/o Breast lesions came to emergency department with chief complaint of pain under left breast for the last 1 week. Vitals in emergency department patient afebrile, no tachypnea, no tachycardia, systolic blood pressure 102-122 and diastolic blood pressure 54-60. Labs significant for mild leukocytosis 11.7, granulocytes 85%, no significant electrolyte abnormality, ALT 58, alkaline phosphatase 190, troponin less than 0.01, normal lipase and amylase INR of 1.21 d-dimer of 4029. Imaging showed, Pulmonary embolism to the lobar branch of the left lung supplying the lower lobe. Segmental pulmonary emboli in the right lower lobe. Either left lower lobe pneumonia or evolving pulmonary infarction in the left lower lobe. Small left pleural effusion. Cholelithiasis. Numerous surgical clips in the lower abdomen and both sides of the pelvis. Patient was admitted on telemetry floor for the management of following problems Pulmonary embolism in the setting of Uterince cancer s/p Hysterectomy 2000 and morbid obesity Patient did have a history of recent fall in January 2017 but according to her she was not sedentary after her fall and denied any history of smoking, recent surgery, hormonal therapy, or a history of lung clots, gene mutations in the family. According to the Wells criteria, she had low probability malignancy from 1 point with D-dimer of 4029 and imaging showing pulmonary embolism. Pateint's only Risk factor was morbid obesity and underlying h/o malignancy. Echocardiogram showed Normal left ventricular ejection fraction visually estimated at > 60%. 2 sets of troponins were negative. She was started on IV heparin and Doppler US to assess the clot burden. Doppler ultrasound showed, Left: There is occlusive thrombus in the included portions of the left common femoral, femoral, and upper popliteal vein. The mid to lower left popliteal vein demonstrates some nonocclusive thrombus. Vascular surgery, was also called because of this extensive clot burden. According to vascular surgery There was no indication for IVC filter as the patient is being able to be anticoagulated. She may benefit from venogram and thrombolysis in the near future in order to prevent future post phlebitic syndrome. Patient was told to follow-up with vascular surgery on discharge. Incidental Finding Large peripelvic intrarenal sinus cysts, left greater than right. On the left side, hydronephrosis is simulated. This was discussed with Radiologist Dr. Avalos and he said this hydronephrosis on imaging is a fake out and this finding looks like hydronephrosis because of cysts but there is actually no hydronephrosis. Patient was full code Patient was on IV heparin and later Eliquis for DVT prophylaxis Patient was on heart healthy diet Patient was on pain management Allergies: Coded Allergies: No Known Allergies (01/31/17) Disposition Summary Disposition Principal Diagnosis: Extensive DVT /Pulmonary embolism in the setting of Uterince cancer s/p Hysterectomy 2000 and morbid obesity Additional Diagnosis: History of uterine cancer History of hyperlipidemia History of hypertension Discharge Disposition: home or self care Discharge Instructions General Discharge Information Code Status: Full Code Patient's Diet: Heart healthy diet Patient's Activity: Started Follow-Up Instructions/Appts: 1. Follow-up with primary care doctor in a week after discharge. 2. Follow-up with vascular surgeon after discharge 3. Continue Eliquis 10 mg by mouth twice a day 7 days followed by 5 mg by mouth twice a day later 4. Please Follow up with Dr. Bennett in 2 weeks Medications at Discharge Discharge Medications: Continue taking these medications: Atorvastatin Calcium (Atorvastatin Calcium) 40 MG TABLET 1 Tablet ORAL DAILY Qty = 90 Comments: Last Taken: 05/15/17 Time: 9AM Aspirin (Aspirin*) 81 MG TAB.CHEW 1 Tablet ORAL DAILY Comments: Last Taken: 05/15/17 Time: 9AM Olmesartan Medoxomil (Benicar) 20 MG TABLET 0.5 Tablet ORAL DAILY Comments: NOT GIVEN IN HOSPITAL Cyanocobalamin (Vitamin B-12) 1,000 MCG TABLET 1 Tablet ORAL DAILY Comments: Last Taken: 05/15/17 Time: 9AM Cholecalciferol (Vitamin D3) (Vitamin D3) 2,000 UNIT TABLET 1 Tablet ORAL DAILY Comments: Last Taken: 05/15/17 Time: 9AM Biotin (Biotin) 10,000 MCG CAPSULE 1 Capsule ORAL DAILY Comments: NOT GIVEN IN HOSPITAL Ezetimibe (Zetia) 10 MG TABLET 1 Tablet ORAL DAILY Qty = 90 Comments: Last Taken: 05/15/17 Time: 9AM Start taking the following new medications: Apixaban (Eliquis) 5 MG TABLET 2 Tablet ORAL TWICE DAILY Qty = 18 No Refills Comments: Last Taken: 05/15/17 Time: 9AM TAKE THIS MEDICATION TILL 05/19/17 AND THEN START 5MG BID Apixaban (Eliquis) 5 MG TABLET 1 Tablet ORAL TWICE DAILY Qty = 60 Refills = 5 Comments: START TAKING THIS MEDICATION ON 05/19/17 Copies To: BELINDA THAO,FARRAH Heredia
[2017-05-14 21:42] VITALS: BP 110/70
--- NOTE | 2017-05-15 07:32 | PN- Housestaff ---
Subjective Follow-up For: Pulmonary embolism Extensive DVT in the left lower extremity Complaints: no complaints Review of Systems Constitutional: Denies: chills, fever. EENTM: Denies: visual changes. Cardiovascular: Denies: chest pain, palpitations. Respiratory: Denies: cough, short of breath. Gastrointestinal: Denies: abdominal pain, nausea, vomiting. Genitourinary: Denies: dysuria. Musculoskeletal: Denies: back pain, joint pain. Objective Last 24 Hrs of Vital Signs/I&O Vital Signs Date Time Temp Pulse Resp B/P B/P Pulse O2 O2 Flow FiO2 Mean Ox Delivery Rate 05/15 0746 98.3 60 20 124/74 94 Room Air 05/14 2142 98.6 62 20 110/70 93 05/14 1600 Room Air 05/14 1447 97.9 60 20 120/70 94 Room Air 05/14 0918 57 120/70 Intake & Output 05/15 1600 05/15 0800 05/15 0000 Intake Total 400 Output Total Balance 400 Intake, IV 0 Intake, Oral 400 Number 0 Bowel Movements Physical Exam General Appearance: Alert, Oriented X3, Cooperative, No Acute Distress, Obesity HEENT: Atraumatic, Hair loss Neck: Supple Cardiovascular: Regular Rate, Normal S1, Normal S2, No Murmurs Lungs: Clear to Auscultation, Normal Air Movement Abdomen: Normal Bowel Sounds, Soft, No Tenderness, No Hepatospenomegaly Neurological: Normal Speech, Normal Tone, Sensation Intact Extremities: Non pitting edema Current Medications: Current Medications Sig/Bev Start time Last Medication Dose Route Stop Time Status Admin Acetaminophen 650 MG Q6P PRN 05/12 1315 AC PO Apixaban 10 MG BID 05/13 1345 AC 05/14 PO 2127 Aspirin 81 MG DAILY 05/13 1000 AC 05/14 PO 0918 Atorvastatin Calcium 40 MG DAILY 05/13 1000 AC 05/14 PO 0918 Benzonatate 100 MG TID 05/14 1600 AC 05/14 PO 2127 Cholecalciferol 2,000 IU DAILY 05/13 1000 AC 05/14 PO 917 Cyanocobalamin 1,000 MCG DAILY 05/13 1000 AC 05/14 PO 18 Ezetimibe 10 MG DAILY 05/13 1000 AC 05/14 PO 0918 Losartan Potassium 37.5 MG DAILY 05/13 1000 AC 05/14 PO 0918 Morphine Sulfate 0.5 MG Q6P PRN 05/12 1315 AC 05/13 IV 1636 Oxycodone HCl 5 MG Q6P PRN 05/12 1315 AC 05/12 PO 2206 Assessment/Plan Assessment: 71-year-old female with past medical history of obesity, significant for Uterine CA s/p Hysterectomy 2000 s/p radiation therapy 2002, hair loss and Right leg lyphedema post cancer tx, inflammatory and hamartomatous polyps on colonoscopy 2013, hypertension on Benicar, hyperlipidemia on atorvastatin, DJD sleeps in a recliner chair, h/o Breast lesions came to emergency department with chief complaint of pain under left breast for the last 1 week. Vitals in emergency department patient afebrile, no tachypnea, no tachycardia, systolic blood pressure 102-122 and diastolic blood pressure 54-60. Labs significant for mild leukocytosis 11.7, granulocytes 85%, no significant electrolyte abnormality, ALT 58, alkaline phosphatase 190, troponin less than 0.01, normal lipase and amylase INR of 1.21 d-dimer of 4029. Imaging showed, Pulmonary embolism to the lobar branch of the left lung supplying the lower lobe. Segmental pulmonary emboli in the right lower lobe. Either left lower lobe pneumonia or evolving pulmonary infarction in the left lower lobe. Small left pleural effusion. Cholelithiasis. Numerous surgical clips in the lower abdomen and both sides of the pelvis. Doppler ultrasound showed, Left: There is occlusive thrombus in the included portions of the left common femoral, femoral, and upper popliteal vein. The mid to lower left popliteal vein demonstrates some nonocclusive thrombus. Patient was admitted on telemetry floor for the management of following problems Extensive DVT /Pulmonary embolism in the setting of Uterince cancer s/p Hysterectomy 2000 and morbid obesity Vascular surgery was consulted and informed about the extensive DVT in left lower extremity. Patient was initially on IV heparin which was switched to Eliquis yesterday. We'll continue with anticoagulation for at least 3-6 months as this is an unprovoked DVT/PE. She may benefit from venogram and thrombolysis in the near future in order to prevent future post phlebitic syndrome as per vascular surgery. Echocardiogram showed Normal left ventricular ejection fraction visually estimated at > 60%. 2 sets of troponin negative. Cardiology following. Patient was unable to home yesterday because of physical deconditioning. We ordered physical therapy for her and the plan is to discharge her today. Patient is full code Patient is on IV heparin for DVT prophylaxis Patient is on heart healthy diet Patient is on pain management Problem List: 1. Pulmonary embolism Pain Ratin Pain Location: NA Pain Goal: Pain 4 or less Pain Plan: Continue current pain management Tomorrow's Labs & Rationales: Not needed as patient will be discharged
[2017-05-15 07:46] VITALS: BP 124/74
[2017-05-15 09:16] VITALS: BP 124/74
--- NOTE | 2017-05-15 11:08 | PN- Cardiology ---
Subjective Subjective: Feeling better. Chest pain has resolved. Shortness of breath is improving. Objective Vital Signs and I&Os Vital Signs Date Time Temp Pulse Resp B/P B/P Pulse O2 O2 Flow FiO2 Mean Ox Delivery Rate 05/15 0916 60 124/74 05/15 0800 Room Air 05/15 0746 98.3 60 20 124/74 94 Room Air 05/14 2142 98.6 62 20 110/70 93 05/14 1600 Room Air 05/14 1447 97.9 60 20 120/70 94 Room Air Intake & Output 05/15 1600 05/15 0800 05/15 0000 05/14 1600 05/14 0800 05/14 0000 Intake Total 100 400 720 120 320 Output Total 400 Balance 100 400 720 -280 320 Intake, IV 0 20 Intake, Oral 100 400 720 120 300 Number 0 Bowel Movements Output, Urine 400 Physical Exam: Gen: The patient is in no acute distress HEENT: Normal nose, ears, and oropharynx. Pupils equal bilaterally. Conjunctiva normal. Neck: Supple with no JVD, no masses, and no thyromegaly Lungs: Clear to auscultation with normal respiratory effort Heart: RRR, S1, S2, 2/6 systolic murmur. 1+ peripheral edema, right > left, 2+ pulses in the lower extremities bilaterally Abdomen: Soft, nontender, no masses. No hepatomegaly. No splenomegaly Extremities: No clubbing or cyanosis. Normal muscle strength in the upper and lower extremities Skin: Normal skin turgor with no skin ulcers or lesions noted. Neuro: Cranial nerves intact. Sensation intact Current Medications: Current Medications Sig/Bev Start time Last Medication Dose Route Stop Time Status Admin Acetaminophen 650 MG Q6P PRN 05/12 1315 AC PO Apixaban 10 MG BID 05/13 1345 AC 05/15 PO 0915 Aspirin 81 MG DAILY 05/13 1000 AC 05/15 PO 0915 Atorvastatin Calcium 40 MG DAILY 05/13 1000 AC 05/15 PO 0915 Benzonatate 100 MG TID 05/14 1600 AC 05/15 PO 0915 Cholecalciferol 2,000 IU DAILY 05/13 1000 AC 05/15 PO 0915 Cyanocobalamin 1,000 MCG DAILY 05/13 1000 AC 05/15 PO 0915 Ezetimibe 10 MG DAILY 05/13 1000 AC 05/15 PO 0915 Losartan Potassium 37.5 MG DAILY 05/13 1000 AC 05/15 PO 0916 Morphine Sulfate 0.5 MG Q6P PRN 05/12 1315 05/13 IV 1636 Oxycodone HCl 5 MG Q6P PRN 05/12 1315 05/12 PO 2206 Results Last 48 Hrs of Labs/Mics: Laboratory Tests 05/14/17 0619: Anion Gap 7, Estimated GFR > 60, BUN/Creatinine Ratio 22.5, CBC w Diff NO MAN DIFF REQ, RBC 4.05 L, MCV 94.0, MCH 30.8, RDW 13.0, MPV 7.3 L, Gran % 70.8, Lymphocytes % 13.1 L, Monocytes % 9.1, Eosinophils % 6.5 H, Basophils % 0.5, Absolute Granulocytes 6.3, Absolute Lymphocytes 1.2, Absolute Monocytes 0.8 H, Absolute Eosinophils 0.6, Absolute Basophils 0, PUBS MCHC 32.7 L 05/13/17 1140: APTT 56 H Assessment/Plan Assessment/Plan Assessment: 1. Hypertension, controlled 2. History of uterine cancer, status post surgery and radiation therapy 3. Acute pulmonary embolism with possible pulmonary infarct 4. Deep vein thrombosis Plan: * Continue Eliquis 10 mg by mouth twice a day 7 days followed by 5 mg by mouth twice a day * Discontinue aspirin while on Eliquis * Continue other cardiac medications. * Follow up with Dr. Bennett in 1 week Continue telemetry? No
[2017-05-15] MEDS ORDERED: ELIQUIS5 M1 PO ×2 (14:16→14:23)
--- NOTE | 2017-05-15 14:46 | PN- Att Addend ---
Attending Addendum Attending Brief Note Patient seen and examined. Plan of care discussed with the medical team and the patient. Available lab work and radiology test reports were reviewed. Patient denies any leg pain recent fever chills nausea vomiting or abdominal pain. She appears comfortable at rest. She was noted to be ambulating in hallway without any problems today. She denies any leg or calf pain. Her pain and left chest area has essentially resolved. Vital Signs Date Time Temp Pulse Resp B/P B/P Pulse O2 O2 Flow FiO2 Mean Ox Delivery Rate 05/15 0916 60 124/74 05/15 0800 Room Air 05/15 0746 98.3 60 20 124/74 94 Room Air 05/14 2142 98.6 62 20 110/70 93 05/14 1600 Room Air 05/14 1447 97.9 60 20 120/70 94 Room Air Intake & Output 05/15 1600 05/15 0800 05/15 0000 Intake Total 720 100 400 Output Total Balance 720 100 400 Intake, IV 0 Intake, Oral 720 100 400 Number 1 0 Bowel Movements Exam: General: Patient awake alert oriented without any distress CVS: S1 plus S2 without any murmur or gallops Chest: Few scattered crepitation without any wheeze. There is no respiratory distress. Abdomen: Soft nontender, bowel sound present, no guarding or rebound [employer]IPAL WEB DEVELOPER: Awake alert oriented without any focal neuro deficit and follows command appropriately Extremities: No edema; no clubbing or cyanosis noted; or popliteal tenderness noted No new labs done today Assessment * Pulmonary emboli to multiple lobes * Left leg DVT extensive-patient seen by VASC surgery and no intervention is recommended * Uterine CA status post hysterectomy * Obesity * Hypertension * Hyperlipidemia * Mild eosinophilia- patient does not have any rash or allergy symptoms therefore the significance eosinophilia is unclear Plan * Continue eliquis. patient likely will need 3-6 month of treatment. She should undergo a d-dimer testing in about 3 months and if d-dimer is elevated her treatment should be extended to 6 or 9 months. * Age-appropriate cancer screening is recommended at this time such as mammography and colonoscopy. Note the patient's last colonoscopy in September 2014 was negative for any cancer. * discharge today * potential venogram and thrombolysis in near future as outpatient by vascular surgery. Patient will follow with vascular surgery Total time spent in preparation for discharge plan, patient education, and CMR preparation was 35 minutes.
== END 2017-05-15 15:00 | DRG 176 ==
LOC: ERH 08:58 → ERHI 12:37 → 1NO 12:37 → ERHI 12:41 → 1NO 12:41 → ERH 12:41 → 1NO 13:24 → ERHI 13:24 → ENRESERV 13:30 → ENTRNSPT 14:01 → EDTRNSPTSTS 14:23 → 1NO 14:30 → ERHI 14:31 → CMPTRNSPT 14:53 → 1NO 05-13 11:27 → ENPENDDIS 05-15 14:24 → 1NO 05-15 15:00
PROVIDERS: Internal Medicine Endocrinology, Diabetes & Metabolism; Physician Assistant; Student in an Organized Health Care Education/Training Program; ADMIT Internal Medicine
DX: I26.99 Other pulmonary embolism without acute cor pulmonale (principal); D72.1 Eosinophilia; I82.412 Acute embolism and thrombosis of left femoral vein; I82.432 Acute embolism and thrombosis of left popliteal vein; E66.01 Morbid (severe) obesity due to excess calories; Z68.37 Body mass index [BMI] 37.0-37.9, adult; Z85.42 Personal history of malignant neoplasm of other parts of uterus; E78.5 Hyperlipidemia, unspecified; I10 Essential (primary) hypertension
CPT/HCPCS: 1NSP; 36415; 74177; 82436; 93005; 93010; 93306; 93970; 96374; 96375; 97116-GO; 97161-GP; 97530-GO; 99291; J0713; J1644; J3490

== ENCOUNTER 2017-05-26 01:50 | Observation (INO) | payer OTHER, MEDICARE ==
[~2017-05-26] VITALS: Ht 172.7 cm; Wt 112.9 kg
[~2017-05-26 01:50] MED LIST changes: +ELIQUIS5 M1 PO
--- NOTE | 2017-05-26 15:18 | RADIOLOGY REPORT ---
EXAMINATION: XR FEMUR, LEFT CLINICAL INFORMATION: History of deep vein thrombosis of left lower extremity. COMPARISON: Ultrasound extremity, 05/12/2017. TECHNIQUE: Intraoperative C-arm fluoroscopic imaging of the left lower extremity was utilized during performance of venography and thrombolysis by Dr. Jacobson. FLUOROSCOPY TIME: 13 minutes, 10 seconds. NUMBER OF SAVED IMAGES: 29 separate series of images, all containing multiple cine images. FINDINGS: Please refer to the operative report regarding procedure details, findings and specific interventions performed. Images demonstrate thrombotic filling defects of the right femoral venous system. Balloon venoplasty was included in the therapy. IMPRESSION: Fluoroscopic imaging assistance was provided to Dr. Jacobson within the operating room.
--- NOTE | 2017-05-26 15:38 | Admission Core Measures ---
Admission Meds I reviewed the following Meds: Current Medications Sig/Bev Start time Last Medication Dose Stop Time Status Admin Apixaban 5 MG BID 05/26 2200 AC (Eliquis) Aspirin 81 MG DAILY 05/26 1411 AC (Aspirin) Atorvastatin Calcium 40 MG DAILY 05/27 1000 AC (Lipitor) Ezetimibe 10 MG DAILY 05/27 1000 AC (Zetia) Losartan Potassium 25 MG DAILY 05/26 1412 AC (Cozaar) Acute Coronary Syndrome Inclusion Criteria ACS Diagnosis No Inpatient Core Measures LDL Reminder: If No, please order W/I first 24hr of stay Congestive Heart Failure Inclusion Criteria CHF Diagnosis No Cerebrovascular accident Inclusion Criteria CVA/TIA Diagnosis No Inpatient Core Measures Bedside Swallow Eval Reminder: If BSE failed, place ST order Antithrombotic Reminder: Order Antithrombotic Medication by end of day 2 Antithrombotic Reminder: Document Reason Antithrombotic Not ordered by end of day 2 AFIB/Flutter Reminder: If Present, add to problem list AFIB/Flutter Reminder: Order Anticoag Medication for pts with AFIB/Flutter Atherosclerosis Reminder: If Present, add to problem list LDL Reminder: If No, please order W/I first 24hr of stay PT Order Reminder: If No, please order Venous thromboembolism Inpatient Core Measures VTE Risk Factors: [facility] prophylaxis d/t No contraindications No VTE Pharm Prophylaxis d/t No contraindications Inclusion Criteria - Per Current guidelines, there needs to be overlap - treatment for the first 5 days of Warfarin therapy. - Parenteral Anticoagulation (IV or SC) needs to be - given along with Warfarin therapy. VTE Diagnosis Yes VTE Type Deep Venous Thrombosis VTE Confirmed by (Test) NONE (preexisting dx preadmission) Comment preop dx: DVT LLE, hx PE Problem List As ranked by this Provider includes Assessment & Plan 1. DVT (deep venous thrombosis) HOME MEDS Home Med List Apixaban (Eliquis) 5 MG TABLET 2 TAB PO BID PULMONARY EMBOLISM Aspirin (Aspirin*) 81 MG TAB.CHEW 1 TAB PO DAILY HEART HEALTH (Reported) Atorvastatin Calcium 40 MG TABLET 1 TAB PO DAILY CHOLESTEROL (Reported) Biotin 10,000 MCG CAPSULE 1 CAP PO DAILY SUPPLEMENT (Reported) Cholecalciferol (Vitamin D3) (Vitamin D3) 2,000 UNIT TABLET 1 TAB PO DAILY SUPPLEMENT (Reported) Cyanocobalamin (Vitamin B-12) 1,000 MCG TABLET 1 TAB PO DAILY SUPPLEMENT ( Reported) Ezetimibe (Zetia) 10 MG TABLET 1 TAB PO DAILY CHOLESTEROL (Reported) Olmesartan Medoxomil (Benicar) 20 MG TABLET 0.5 TAB PO DAILY HEART (Reported)
--- NOTE | 2017-05-26 17:12 | PN- Vascular Surgery ---
Subjective Subjective: POSTOP CHECK bradycardic to 30s in PACU, now in 40s, with SBP 140s. Asymptomatic- denies CP, SOB, dizziness. Denies leg pain. Denies parasthesias. Has been bedrest with LLE straight since OR Objective Vital Signs and I&Os SBP 140s HR 44 now, was down to low 30s EKG: sinus fabrizio Physical Exam: GEN: NAD CARD: s1s2 fabrizio PULM: no audible wheeze ABD: soft nt EXT: palp PT/DT bl. Left foot warm, gross motor and sensate intact. L knee compressive dressing removed- small gauze dressing remains intact- no drainage. Current Medications: Current Medications Sig/Bev Start time Last Medication Dose Route Stop Time Status Admin Alteplase, 10 MG ONCE ONE 05/26 1215 DC Recombinant IV 05/26 1216 Apixaban 5 MG BID 05/26 2200 AC PO Aspirin 81 MG DAILY 05/26 1411 AC PO Atorvastatin Calcium 40 MG DAILY 05/27 1000 AC PO Ezetimibe 10 MG DAILY 05/27 1000 AC PO Losartan Potassium 25 MG DAILY 05/26 1412 AC PO Assessment/Plan Assessment/Plan A: POD0 sp LLE venogram and thombectomy w popliteal vein access, with asymptomatic sinus bradycardia in PACU. P: -Await input from Dr. Savage, will come by to see patient this pm. -tele floor for 23h obs. -DW Dr. Jacobson- no need for additional procedure tomorrow, thrombectomy completed in one step today. - resume eliquis and asa this evening - bedrest with no flexion of left knee until 8pm tonight - prn pain meds Core Measures/Miscellaneous Venous Thromboembolism VTE Risk Factors: Surgery VTE Contraindications: No Contraindications VTE Diagnosis: Yes VTE Type: Deep Venous Thrombosis VTE Confirmed by (Test): NONE (preexisting dx preadmission) Comment: preop dx: DVT LLE, hx PE Beta Lis Is Beta Lis a Home Med? No Antibiotics Is Patient on Antibiotics? No
--- NOTE | 2017-05-26 17:57 | Cons- Cardiology ---
General Information and HPI Consulting Request Date of Consult: 05/26/17 Requested By: SHI ELLIOTT MD Reason for Consult: bradycardia History of Present Illness: The patient is a 71-year-old female with history of uterine cancer, hypertension , and pulmonary embolism. She underwent left lower extremity venogram and thrombectomy today. She is noted to have postoperative sinus bradycardia, with heart rate in the 30s. She denies any symptoms associated with the bradycardia. No lightheadedness or dizziness. No nausea or vomiting. No palpitations. No syncope. Allergies/Medications Allergies: Coded Allergies: No Known Allergies (01/31/17) Home Med List: Apixaban (Eliquis) 5 MG TABLET 2 TAB PO BID PULMONARY EMBOLISM Aspirin (Aspirin*) 81 MG TAB.CHEW 1 TAB PO DAILY HEART HEALTH (Reported) Atorvastatin Calcium 40 MG TABLET 1 TAB PO DAILY CHOLESTEROL (Reported) Biotin 10,000 MCG CAPSULE 1 CAP PO DAILY SUPPLEMENT (Reported) Cholecalciferol (Vitamin D3) (Vitamin D3) 2,000 UNIT TABLET 1 TAB PO DAILY SUPPLEMENT (Reported) Cyanocobalamin (Vitamin B-12) 1,000 MCG TABLET 1 TAB PO DAILY SUPPLEMENT ( Reported) Ezetimibe (Zetia) 10 MG TABLET 1 TAB PO DAILY CHOLESTEROL (Reported) Olmesartan Medoxomil (Benicar) 20 MG TABLET 0.5 TAB PO DAILY HEART (Reported) Current Medications: Current Medications Sig/Bev Start time Last Medication Dose Route Stop Time Status Admin Acetaminophen 1,000 MG .STK-MED ONE 05/26 927 DC IV 05/26 928 Alteplase, 10 MG ONCE ONE 05/26 1215 DC Recombinant IV 05/26 1216 Apixaban 5 MG BID 05/26 2200 AC PO Aspirin 81 MG DAILY 05/26 1411 AC PO Atorvastatin Calcium 40 MG DAILY 05/27 1000 AC PO Ezetimibe 10 MG DAILY 05/27 1000 AC PO Fentanyl Citrate 300 MCG .STK-MED ONE 05/26 928 DC IM 05/26 929 Losartan Potassium 25 MG DAILY 05/26 1412 AC PO Midazolam HCl 4 MG .STK-MED ONE 05/26 928 DC IM 05/26 929 Review of Systems Review of Systems: No rash. No tremor. No melena. No diaphoresis. All other systems were reviewed, and were noted to be negative. Past History Medical History Neurological: NONE EENT: NONE Cardiovascular: hypertension, hyperlipidemia Respiratory: pulmonary embolism Gastrointestinal: NONE Hepatic: NONE Renal: NONE Musculoskeletal: NONE Psychiatric: NONE Endocrine: NONE Cancer(s): UTERINE CA Surgical History Surgical History: hysterectomy, ADENOIDS (as a child) Family History Relations & Conditions If Any: FATHER FH: congestive heart failure, Onset: 60+. MOTHER FH: cancer, Onset: 50-60. Functional Ability ADLs Independent: dressing, eating, toileting, bathing. Ambulation: independent IADLs Independent: shopping, housework, finances, food prep, telephone, transportation , medication admin. Exam & Diagnostic Data Vital Signs and I&O Blood pressure 133/64, pulse 38, oxygen saturation 97%, respiration 11 Gen: The patient is in no acute distress HEENT: Normal nose, ears, and oropharynx. Pupils equal bilaterally. Conjunctiva normal. Neck: Supple with no JVD, no masses, and no thyromegaly Lungs: Clear to auscultation with normal respiratory effort Heart: RRR, S1, S2, 2/6 systolic murmur. 1+ peripheral edema, 2+ pulses in the lower extremities bilaterally Abdomen: Soft, nontender, no masses. No hepatomegaly. No splenomegaly Extremities: No clubbing or cyanosis. Normal muscle strength in the upper and lower extremities Skin: Normal skin turgor with no skin ulcers or lesions noted. Neuro: Cranial nerves intact. Sensation intact Psych: Alert and oriented 3 with appropriate affect Labs/Terence Results: Lab 05/14/17: Glucose 106, BUN 14, creatinine 0.8, sodium 141, potassium 4.2, chloride 105, CO2 22 Diagnostic Data EKG Results EKG tracing is independently reviewed, and reveals sinus bradycardia at 36 bpm Other Results CTA chest successfully 06/12/27: 1. Pulmonary embolism to the lobar branch of the left lung supplying the lower lobe. Segmental pulmonary emboli in the right lower lobe. 2. Either left lower lobe pneumonia or evolving pulmonary infarction in the left lower lobe. Small left pleural effusion. 3. Cholelithiasis. 4. Large peripelvic intrarenal sinus cysts, left greater than right. On the left side, hydronephrosis is simulated. 5. Numerous surgical clips in the lower abdomen and both sides of the pelvis. Echocardiogram 05/14/17: 1. Pulmonary embolism to the lobar branch of the left lung supplying the lower lobe. Segmental pulmonary emboli in the right lower lobe. 2. Either left lower lobe pneumonia or evolving pulmonary infarction in the left lower lobe. Small left pleural effusion. 3. Cholelithiasis. 4. Large peripelvic intrarenal sinus cysts, left greater than right. On the left side, hydronephrosis is simulated. 5. Numerous surgical clips in the lower abdomen and both sides of the pelvis. Assessment/Plan Assessment/Plan Assessment: 1. Uterine cancer, status post surgery and radiation 2. Recent pulmonary embolism and deep and thrombosis 4. Hypertension 5. Postoperative sinus bradycardia, asymptomatic, with heart rate in the 30s Plan: * Theophylline extended release 200 mg by mouth twice a day for sinus bradycardia * Restart Eliquis once cleared by surgery * Continue other medications * Monitor on telemetry. If no improvement in bradycardia, then pacemaker may need to be considered. Consult Acknowledgment - Thank you for your consult request.
[2017-05-26 21:03] VITALS: BP 124/70
[2017-05-26 22:00] VITALS: BP 124/70
[2017-05-27 07:03] VITALS: BP 104/52
--- NOTE | 2017-05-27 08:06 | PN- Vascular Surgery ---
See Addendum Subjective Subjective: The patient seen this morning postoperatively day #1. She has no complaints the current time is eager to go home later today. She denies any chest pain, palpitations, or difficulty breathing. Objective Vital Signs and I&Os Vital Signs Date Time Temp Pulse Resp B/P B/P Pulse O2 O2 Flow FiO2 Mean Ox Delivery Rate 05/27 0703 97.4 46 18 104/52 97 Nasal Cannula 05/26 2210 96 Nasal 3.0L Cannula 05/26 2200 97.0 45 16 124/70 97 Nasal 3.0L Cannula 05/26 2103 98.3 45 16 124/70 97 Nasal 3.0L Cannula Intake & Output 05/27 1600 05/27 0805/27 0000 05/26 1600 05/26 0805/26 0000 Intake Total 550 200 Output Total 600 450 Balance -50 -250 Intake, Oral 550 200 Output, Urine 600 450 Patient 245 lb Weight Weight Reported by Patient Measurement Method Physical Exam: Gen.: Alert and in no obvious distress Skin: Warm and dry Cardiac: S1 and S2 bradycardia, regular, and with questionable systolic ejection murmur Extremities: Bilateral lower extremities are warm without calf tenderness and the surgical access site clean, dry, and intact without signs of hematoma. Assessment/Plan Assessment/Plan Assessment: 71-year-old female status post left lower extremity venogram and thrombolysis postoperative day 1. The patient's hospital course has been complicated by persistent bradycardia. Per cardiology recommendations the patient was started on theophylline but remains bradycardic. Plan: Follow up cardiology recommendations Continue eliquis and asa Hep-Lock IV fluids Continue current pain regiment GI and DVT prophylaxis Out of bed Incentive spirometry Core Measures/Miscellaneous Venous Thromboembolism VTE Risk Factors: Surgery VTE Contraindications: No Contraindications VTE Diagnosis: Yes VTE Type: Deep Venous Thrombosis VTE Confirmed by (Test): NONE (preexisting dx preadmission) Comment: preop dx: DVT LLE, hx PE Beta Lis Is Beta Lis a Home Med? No Antibiotics Is Patient on Antibiotics? No
--- NOTE | 2017-05-27 10:40 | PN- Cardiology ---
See Addendum Subjective Subjective: The patient reports that she is feeling well. No lightheadedness or dizziness. No syncope. No palpitations. No diaphoresis. She was bradycardic in the 30s overnight, and the heart rate is now in the 50s. Objective Vital Signs and I&Os Vital Signs Date Time Temp Pulse Resp B/P B/P Pulse O2 O2 Flow FiO2 Mean Ox Delivery Rate 05/27 0956 20 97 Nasal 1.0L Cannula 05/27 0948 52 112/64 05/27 0703 97.4 46 18 104/52 97 Nasal Cannula 05/26 2210 96 Nasal 3.0L Cannula 05/26 2200 97.0 45 16 124/70 97 Nasal 3.0L Cannula 05/26 2103 98.3 45 16 124/70 97 Nasal 3.0L Cannula Intake & Output 05/27 1600 05/27 0800 05/27 0000 05/26 1600 05/26 0800 05/26 0000 Intake Total 550 200 Output Total 600 450 Balance -50 -250 Intake, Oral 550 200 Output, Urine 600 450 Patient 245 lb Weight Weight Reported by Patient Measurement Method Physical Exam: Gen: The patient is in no acute distress HEENT: Normal nose, ears, and oropharynx. Pupils equal bilaterally. Conjunctiva normal. Neck: Supple with no JVD, no masses, and no thyromegaly Lungs: Clear to auscultation with normal respiratory effort Heart: RRR, S1, S2, 2/6 systolic murmur. 1+ peripheral edema, 2+ pulses in the lower extremities bilaterally Abdomen: Soft, nontender, no masses. No hepatomegaly. No splenomegaly Extremities: No clubbing or cyanosis. Normal muscle strength in the upper and lower extremities Skin: Normal skin turgor with no skin ulcers or lesions noted. Neuro: Cranial nerves intact. Sensation intact Psych: Alert and oriented 3 with appropriate affect Current Medications: Current Medications Sig/Bev Start time Last Medication Dose Route Stop Time Status Admin Alteplase, 10 MG ONCE ONE 05/26 1215 DC Recombinant IV 05/26 1216 Apixaban 5 MG BID 05/26 2200 DC PO Apixaban 5 MG BID 05/26 220 DC 05/27 PO 0936 Aspirin 81 MG DAILY 05/27 1000 AC 05/27 PO 0935 Aspirin 81 MG DAILY 05/26 1411 DC PO Atorvastatin Calcium 40 MG 1700 05/27 1700 AC PO Atorvastatin Calcium 40 MG DAILY 05/27 1000 DC PO Atropine Sulfate 1 MG .STK-MED ONE 05/26 2229 DC IM 05/26 2230 Atropine Sulfate 1 MG .STK-MED ONE 05/26 1412 DC IM 05/26 1413 Dextrose/Sodium 1,000 ML Q13H 05/27 2300 UNVr Chloride IV Ezetimibe 10 MG DAILY 05/27 1000 DC PO Ezetimibe 10 MG DAILY 05/27 1000 AC 05/27 PO 0936 Heparin Sodium/ 25,000 UNIT Q24H 05/27 2200 UNVr Dextrose IV Dextrose/Water 500 ML Hydromorphone HCl 2 MG .STK-MED ONE 05/26 1355 DC IM 05/26 1356 Losartan Potassium 25 MG DAILY 05/27 1000 AC PO Losartan Potassium 25 MG DAILY 05/26 1412 DC PO Theophylline 200 MG BID 05/26 1830 DC 05/27 PO 0953 Assessment/Plan Assessment/Plan Assessment: 1. Uterine cancer, status post surgery and radiation 2. Recent pulmonary embolism and deep and thrombosis 4. Hypertension 5. Postoperative sinus bradycardia, asymptomatic, with heart rate in the 30s Plan: * Discontinue theophylline * Monitor overnight on telemetry * Nothing by mouth after midnight for possible pacemaker placement * Hold Eliquis for possible pacemaker placement * Depending on overnight clinical course, we will decide on possible discharge tomorrow versus admission for pacemaker placement. * Check basic metabolic profile, CbC, TSH, and magnesium. Continue telemetry? Yes
[2017-05-27 12:28] LABS: ABSOLUTE BASOPHIL COUNT 0 /CUMM (0.0-0.2); ABSOLUTE EOSINOPHIL COUNT 0.7 /CUMM (0.0-0.7); ABSOLUTE GRANULOCYTE CT 5.9 /CUMM (1.4-6.5); ABSOLUTE LYMPH COUNT 1.3 /CUMM (1.2-3.4); ABSOLUTE MONOCYTE COUNT 0.5 /CUMM (0.10-0.60); BASOPHIL % 0.5 % (0.0-2.0); EOSINOPHIL % 7.9 % (0-5); HEMATOCRIT 41.8 % (37-47); MEAN CORPUSCULAR HGB 30.8 PG (27.0-31.0); MEAN CORPUSCULAR HGB CONC 32.6 G/DL (33.0-37.0); MEAN CORPUSCULAR VOLUME 94.4 FL (81.0-99.0); MEAN PLATELET VOLUME 7.9 FL (7.4-10.4); PLATELET COUNT 287 /CUMM (130-400); RBC DISTRIBUTION WIDTH 13.9 % (11.5-14.5); RED BLOOD CELL CT 4.43 /CUMM (4.20-5.40); WHITE BLOOD CELL COUNT 8.4 /CUMM (4.8-10.8)
[2017-05-27 15:10] VITALS: BP 108/56
--- NOTE | 2017-05-27 17:37 | Operative Report ---
Operative/Inv Procedure Report Surgery Date: 05/26/17 Name of Procedure: -Ultrasound-guided left popliteal vein access -Left leg venogram -Pharmaco-mechanical thrombolysis of left femoral vein -Venoplasty of left femoral vein Pre-Operative Diagnosis: Left leg DVT involving the left common femoral vein, femoral vein and popliteal vein by ultrasound Post-Operative Diagnosis: Short segment thrombosis of the proximal femoral vein Thrombosis of duplicated femoral vein Estimated Blood Loss: scant Surgeon/Co Founder And President: SHI ELLIOTT MD Anesthesia: moderate sedation Operative/Procedure Note Note: 71-year-old lady who about 2 weeks ago presented to the hospital with vague left -sided chest pain. CTA of the chest showed bilateral small pulmonary emboli. Lower extremity venous duplex showed left lower extremity DVT involving the common femoral, femoral and popliteal vein. The patient was started on anticoagulation. She presents to the hospital today for left leg venogram and thrombolysis. The nature of the procedure including is possible complications including but not limited to bleeding, infection, blood clots, injury to vessels , and need for re-intervention were discussed. An informed consent was obtained. Patient was taken to the operating room and placed prone on the table. A timeout was called according to protocol. After satisfactory induction of anesthesia, the patient was prepped and draped in standard surgical fashion. Perioperative antibiotic had been started. Using ultrasound, left popliteal vein was accessed using micropuncture technique. A Bentson wire was advanced into the femoral vein under direct fluoroscopic guidance. The micropuncture sheath was exchanged with a 5 Dutch sheath. Then left leg venogram was performed through the 5 Dutch sheath which showed patent distal femoral vein. This vein bifurcates distally and rejoins the femoral vein shortly thereafter. Then the Bentson wire was advanced into the proximal femoral vein. A Glidewire was advanced over the wire and placed into the mid femoral vein. Through the glide catheter, venogram was performed which showed proximal femoral vein stenosis. Just proximal to the stenosis, there was some thrombus. Common femoral vein was patent as well as external iliac vein and common iliac vein. There was thrombus in the duplicated femoral vein. The 5 Dutch sheath was exchanged with a 6 Dutch sheath. An AngioJet catheter was advanced over the wire and was passed the thrombus area. With TPA pulse, the short segment of the thrombosis was pulsed with TPA. 20 minutes was allowed to pass. Then mechanical thrombectomy was performed with the AngioJet device. Post thrombectomy, angioplasty of the vein was performed with a 7 x 60 mm balloon in the area of stenosis. This stenosis was improved. Tomorrow runs of mechanical thrombectomy with AngioJet was performing that segment. Final venogram showed patent femoral vein with improved stenosis in the proximal femoral vein. Common femoral vein remained to be patent. The stenosis appeared to be chronic. Wires and catheters were removed. 20 minutes of manual pressure was applied to the left popliteal fossa on removal of the sheath. Sterile dressing was applied. The patient was then taken to the recovery room in stable condition.
--- NOTE | 2017-05-27 18:16 | PN- Vascular Surgery ---
Surgical Brief Attending Note Brief Attending Note: POD 1 from left leg venogram and mechanical thrombolysis. She is hemodynamically stable with bradycardia. Appreciate Dr. Savage's input. Left popliteal access is soft with no evidence of hematoma. Apparently, the patient will be started on heparin drip for possible pacemaker tomorrow.
[2017-05-27 22:08] VITALS: BP 120/60
[2017-05-28 05:23] LABS: PTT 73 SEC (25-37)
--- NOTE | 2017-05-28 05:34 | NUR ---
OVRNIGHT, PT'S HR WENT LOW 38 SINUS ALONSO. PT ASYMPTOMATIC. ON HEPARIN GTT @ 26ML/HR FOR POSSIBLE PACEMAKER PLACEMENT TODAY.
[2017-05-28 07:28] VITALS: BP 122/60
[2017-05-28 08:13] LABS: ABSOLUTE BASOPHIL COUNT 0 /CUMM (0.0-0.2); ABSOLUTE EOSINOPHIL COUNT 0.7 /CUMM (0.0-0.7); ABSOLUTE GRANULOCYTE CT 3.9 /CUMM (1.4-6.5); ABSOLUTE LYMPH COUNT 1.3 /CUMM (1.2-3.4); ABSOLUTE MONOCYTE COUNT 0.5 /CUMM (0.10-0.60); BASOPHIL % 0.3 % (0.0-2.0); EOSINOPHIL % 11.3 % (0-5); GRANULOCYTE % 60.9 % (42.2-75.2); HEMATOCRIT 38.7 % (37-47); MEAN CORPUSCULAR HGB 31.1 PG (27.0-31.0); MEAN CORPUSCULAR VOLUME 94.2 FL (81.0-99.0); MEAN PLATELET VOLUME 7.6 FL (7.4-10.4); PLATELET COUNT 235 /CUMM (130-400); RBC DISTRIBUTION WIDTH 13.9 % (11.5-14.5); WHITE BLOOD CELL COUNT 6.4 /CUMM (4.8-10.8)
--- NOTE | 2017-05-28 11:47 | Patient Discharge Instructions ---
Discharge Instructions General Discharge Information You were seen/treated for: Left leg DVT involving the left common femoral vein, femoral vein and popliteal vein by ultrasound bradycardia You had these procedures: Surgery Date: 05/26/17 Name of Procedure: -Ultrasound-guided left popliteal vein access -Left leg venogram -Pharmaco-mechanical thrombolysis of left femoral vein -Venoplasty of left femoral vein Watch for these problems: fever>101.3, increased pain, redness/swelling/drainage, dizziness, shortness of breath, chest pain No bath, but you may shower: Yes Other wound care: ok to remove dressing 24 hours after discharge. no dressings needed once removed. Special Instructions: call vascular surgeon for 2 week follow up visit Diet Continue normal diet: Yes Recommended Diet: Heart Healthy Activity Full Activity/No Limits: Yes Activity Self Limited: Yes Acute Coronary Syndrome Inclusion Criteria At DC or during hospital stay patient has or had the following: ACS DIAGNOSIS No Discharge Core Measures Meds if any: Prescribed or Continued at Discharge Meds if any: NOT Prescribed or Continued at Discharge Congestive Heart Failure Inclusion Criteria At DC or during hospital stay patient has or had the following: CHF DIAGNOSIS No Discharge Core Measures Meds if any: Prescribed or Continued at Discharge Meds if any: NOT Prescribed or Continued at Discharge Cerebrovascular accident Inclusion Criteria At DC or during hospital stay patient has or had the following: CVA/TIA Diagnosis No Discharge Core Measures Meds if any: Prescribed or Continued at Discharge Meds if any: NOT Prescribed or Continued at Discharge Venous thromboembolism Inclusion Criteria VTE Diagnosis Yes VTE Type Deep Venous Thrombosis VTE Confirmed by (Test) DUPLEX SCAN LOWER EXT Discharge Core Measures - Per Current guidelines, there needs to be overlap - treatment for the first 5 days of Warfarin therapy. - If discharged on Warfarin prior to 5 days of - overlap therapy, the patient will need to be - assessed for post discharge needs including - *Post discharge parental anticoagulation - *Warfarin and/or parental anticoagulation education - *Follow up date to check INR post discharge At least 5 days overlap therapy as Inpatient No Why was Parental Med stopped Other Anticoagulant given Meds if any: Prescribed or Continued at Discharge Warfarin No Note: Overlap Therapy is Warfarin and Anticoagulant Meds if any: NOT Prescribed or Continued at Discharge No Warfarin d/t Prescribed other Anticoag No Overlap Therapy d/t Prescribed other Anticoag
--- NOTE | 2017-05-28 11:53 | Surg Short-stay <48hrs Dis Sum ---
Visit Information Visit Dates Admission Date: 05/26/17 Discharge Date: 05/28/17 Surgical Short Stay DC Summary Admission Diagnosis: Left leg DVT involving the left common femoral vein, femoral vein and popliteal vein by ultrasound Final Diagnosis: 1) same as above, s/p Surgery Date: 05/26/17 Name of Procedure: -Ultrasound-guided left popliteal vein access -Left leg venogram -Pharmaco-mechanical thrombolysis of left femoral vein -Venoplasty of left femoral vein 2) Post-operative Bradycardia, seen by and , monitored on telemetry, not requiring any intervention at this time. Procedure(s): Surgery Date: 05/26/17 Name of Procedure: -Ultrasound-guided left popliteal vein access -Left leg venogram -Pharmaco-mechanical thrombolysis of left femoral vein -Venoplasty of left femoral vein Pre-Operative Diagnosis: Left leg DVT involving the left common femoral vein, femoral vein and popliteal vein by ultrasound Post-Operative Diagnosis: Short segment thrombosis of the proximal femoral vein Thrombosis of duplicated femoral vein Summary/Significant Findings: 71-year-old lady who about 2 weeks ago presented to the hospital with vague left -sided chest pain. CTA of the chest showed bilateral small pulmonary emboli. Lower extremity venous duplex showed left lower extremity DVT involving the common femoral, femoral and popliteal vein. The patient was started on anticoagulation (eliquis). She presented to the hospital for this admission for left leg venogram and thrombolysis. The thrombolysis was successful, and she remained on a heparin drip post-operatively until she was discharged to home, with eliquis restarted at the time the heparin was stopped. She was also seen in consultation by cardiology, and , for bradycardia noted post-operatively. No intervention was required for this, but she will be following up with cardiology one week after discharge. Condition at Discharge: stable Discharge Disposition: home or self care Discharge instructions provided to patient/family: Yes Post discharge follow-up plan: call geological science teacher ( or ) for one week follow up appointment call vascular surgeon () for two week follow up appointment
--- NOTE | 2017-05-28 12:00 | PN- Vascular Surgery ---
Subjective Subjective: No complaints. No pain. Remains asymptomatic, with improving bradycardia. Seen by this morning, for , with plans for outpatient follow up in one week. She has been ambulating without difficulty. No dizziness. No shortness of breath. No chest pains. Voiding well. Objective Vital Signs and I&Os Vital Signs Date Time Temp Pulse Resp B/P B/P Pulse O2 O2 Flow FiO2 Mean Ox Delivery Rate 05/28 1006 41 05/28 0728 98.2 50 18 122/60 96 Room Air 05/27 2208 98.7 57 18 120/60 95 Room Air 05/27 1510 98.3 57 20 108/56 97 Room Air 05/27 1450 18 96 Room Air Room Air Intake & Output 05/28 1600 05/28 0800 05/28 0000 05/27 1600 05/27 0800 05/27 0000 Intake Total 808 240 800 550 200 Output Total 600 450 Balance 808 240 800 -50 -250 Intake, IV 808 Intake, Oral 0 240 800 550 200 Output, Urine 600 450 Patient 249 lb 245 lb 245 lb Weight Weight Standing Scale Reported by Patient Measurement Method Physical Exam: General - alert & oriented x 3. comfortable. no acute distress. Lungs - clear bilaterally. no w/r/r. Cardiac - s1s2. reg. Abdomen - soft. nontender Extremities - Left popliteal access is soft with no evidence of hematoma. palpable pulses distally. Current Medications: Current Medications Sig/Bev Start time Last Medication Dose Route Stop Time Status Admin Apixaban 5 MG BID 05/28 1130 AC PO Aspirin 81 MG DAILY 05/27 1000 AC 05/28 PO 1016 Atorvastatin Calcium 40 MG 1700 05/27 1700 AC 05/27 PO 1654 Dextrose/Sodium 1,000 ML Q13H 05/27 2300 DC 05/27 Chloride IV 2220 Ezetimibe 10 MG DAILY 05/27 1000 AC 05/28 PO 1016 Heparin Sodium/ 25,000 UNIT Q24H 05/27 2200 DC 05/27 Dextrose IV 2220 Dextrose/Water 500 ML Losartan Potassium 25 MG DAILY 05/27 1000 AC PO Patient Medication 1 ED .STK-MED ONE 05/27 1409 DC Teaching ED 05/27 1410 Results Last 48 Hours of Labs: Laboratory Tests 05/28 05/28 0651 0440 Chemistry Sodium (137 - 145 mmol/L) 140 Potassium (3.5 - 5.1 mmol/L) 3.9 Chloride (98 - 107 mmol/L) 109 H Carbon Dioxide (22 - 30 mmol/L) 27 Anion Gap (5 - 16) 5 BUN (7 - 17 mg/dL) 10 Creatinine (0.5 - 1.0 mg/dL) 0.7 Estimated GFR (>60 ml/min) > 60 BUN/Creatinine Ratio (7 - 25 %) 14.3 Coagulation APTT (25 - 37 SEC) 73 H Hematology CBC w Diff NO MAN DIFF REQ WBC (4.8 - 10.8 /CUMM) 6.4 RBC (4.20 - 5.40 /CUMM) 4.10 L Hgb (12.0 - 16.0 G/DL) 12.8 Hct (37 - 47 %) 38.7 MCV (81.0 - 99.0 FL) 94.2 MCH (27.0 - 31.0 PG) 31.1 H RDW (11.5 - 14.5 %) 13.9 Plt Count (130 - 400 /CUMM) 235 MPV (7.4 - 10.4 FL) 7.6 Gran % (42.2 - 75.2 %) 60.9 Lymphocytes % (20.5 - 51.1 %) 20.1 L Monocytes % (1.7 - 9.3 %) 7.4 Eosinophils % (0 - 5 %) 11.3 H Basophils % (0.0 - 2.0 %) 0.3 Absolute Granulocytes (1.4 - 6.5 /CUMM) 3.9 Absolute Lymphocytes (1.2 - 3.4 /CUMM) 1.3 Absolute Monocytes (0.10 - 0.60 /CUMM) 0.5 Absolute Eosinophils (0.0 - 0.7 /CUMM) 0.7 Absolute Basophils (0.0 - 0.2 /CUMM) 0 PUBS MCHC (33.0 - 37.0 G/DL) 33.0 07/11 1110 Chemistry Sodium (137 - 145 mmol/L) 141 Potassium (3.5 - 5.1 mmol/L) 4.0 Chloride (98 - 107 mmol/L) 108 H Carbon Dioxide (22 - 30 mmol/L) 27 Anion Gap (5 - 16) 6 BUN (7 - 17 mg/dL) 14 Creatinine (0.5 - 1.0 mg/dL) 0.8 Estimated GFR (>60 ml/min) > 60 BUN/Creatinine Ratio (7 - 25 %) 17.5 Magnesium (1.6 - 2.3 mg/dL) 2.2 TSH (0.270 - 4.200 uIU/mL) 0.782 Hematology CBC w Diff NO MAN DIFF REQ WBC (4.8 - 10.8 /CUMM) 8.4 RBC (4.20 - 5.40 /CUMM) 4.43 Hgb (12.0 - 16.0 G/DL) 13.6 Hct (37 - 47 %) 41.8 MCV (81.0 - 99.0 FL) 94.4 MCH (27.0 - 31.0 PG) 30.8 RDW (11.5 - 14.5 %) 13.9 Plt Count (130 - 400 /CUMM) 287 MPV (7.4 - 10.4 FL) 7.9 Gran % (42.2 - 75.2 %) 70.0 Lymphocytes % (20.5 - 51.1 %) 15.3 L Monocytes % (1.7 - 9.3 %) 6.3 Eosinophils % (0 - 5 %) 7.9 H Basophils % (0.0 - 2.0 %) 0.5 Absolute Granulocytes (1.4 - 6.5 /CUMM) 5.9 Absolute Lymphocytes (1.2 - 3.4 /CUMM) 1.3 Absolute Monocytes (0.10 - 0.60 /CUMM) 0.5 Absolute Eosinophils (0.0 - 0.7 /CUMM) 0.7 Absolute Basophils (0.0 - 0.2 /CUMM) 0 PUBS MCHC (33.0 - 37.0 G/DL) 32.6 L Assessment/Plan Assessment/Plan This 71-year-old female is POD#2 s/p left lower extremity venogram and thrombolysis, asymptomatic bradycardia - not requiring any intervention at this time per cardiology d/c heparin drip. resume eliquis for treatment of PE and dvt one week follow up with burr mill operator discussed above with , with 2 week follow up visit planned patient understands and agrees with the plan Core Measures/Miscellaneous Venous Thromboembolism VTE Risk Factors: Surgery VTE Contraindications: No Contraindications VTE Diagnosis: Yes VTE Type: Deep Venous Thrombosis VTE Confirmed by (Test): NONE (preexisting dx preadmission) Comment: preop dx: DVT LLE, hx PE Beta Lis Is Beta Lis a Home Med? No Antibiotics Is Patient on Antibiotics? No
--- NOTE | 2017-05-28 13:09 | PN- Cardiology ---
Subjective Subjective: The patient is stable and doing well with no complaints. On the overnight monitor, she occasionally dropped her heart rate into the mid 40s. When awake, her heart rate has ranged between 50 and 70. Yesterday afternoon her heart rate was as high as 90. The patient denies any other cardiac symptoms. Objective Vital Signs and I&Os Vital Signs Date Time Temp Pulse Resp B/P B/P Pulse O2 O2 Flow FiO2 Mean Ox Delivery Rate 05/28 1006 41 05/28 0728 98.2 50 18 122/60 96 Room Air 05/27 2208 98.7 57 18 120/60 95 Room Air 05/27 1510 98.3 57 20 108/56 97 Room Air 05/27 1450 18 96 Room Air Room Air Intake & Output 05/28 1600 05/28 0800 05/28 0000 05/27 1600 05/27 0800 05/27 0000 Intake Total 808 240 800 550 200 Output Total 600 450 Balance 808 240 800 -50 -250 Intake, IV 808 Intake, Oral 0 240 800 550 200 Output, Urine 600 450 Patient 249 lb 245 lb 245 lb Weight Weight Standing Scale Reported by Patient Measurement Method Physical Exam: Gen: The patient is in no acute distress HEENT: Normal nose, ears, and oropharynx. Pupils equal bilaterally. Conjunctiva normal. Neck: Supple with no JVD, no masses, and no thyromegaly Lungs: Clear to auscultation with normal respiratory effort Heart: RRR, S1, S2, 2/6 systolic murmur. 1+ peripheral edema, 2+ pulses in the lower extremities bilaterally Abdomen: Soft, nontender, no masses. No hepatomegaly. No splenomegaly Extremities: No clubbing or cyanosis. Normal muscle strength in the upper and lower extremities Skin: Normal skin turgor with no skin ulcers or lesions noted. Neuro: Cranial nerves intact. Sensation intact Psych: Alert and oriented 3 with appropriate affect Current Medications: Current Medications Sig/Bev Start time Last Medication Dose Route Stop Time Status Admin Apixaban 5 MG BID 05/28 1130 DCD 05/28 PO 1201 Aspirin 81 MG DAILY 05/27 1000 DCD 05/28 PO 1016 Atorvastatin Calcium 40 MG 1700 05/27 1700 DCD 05/27 PO 1654 Dextrose/Sodium 1,000 ML Q13H 05/27 2300 DC 05/27 Chloride IV 2220 Ezetimibe 10 MG DAILY 05/27 1000 DCD 0712 PO 1016 Heparin Sodium/ 25,000 UNIT Q24H 05/27 2200 DC 05/27 Dextrose IV 2220 Dextrose/Water 500 ML Losartan Potassium 25 MG DAILY 05/27 1000 DCD PO Patient Medication 1 ED .STK-MED ONE 05/27 1409 LA Teaching ED 05/27 1410 Results Last 48 Hrs of Labs/Mics: Laboratory Tests 05/28/17 0651: Anion Gap 5, Estimated GFR > 60, BUN/Creatinine Ratio 14.3, CBC w Diff NO MAN DIFF REQ, RBC 4.10 L, MCV 94.2, MCH 31.1 H, RDW 13.9, MPV 7.6, Gran % 60.9, Lymphocytes % 20.1 L, Monocytes % 7.4, Eosinophils % 11.3 H, Basophils % 0.3, Absolute Granulocytes 3.9, Absolute Lymphocytes 1.3, Absolute Monocytes 0.5, Absolute Eosinophils 0.7, Absolute Basophils 0, PUBS MCHC 33.0 05/28/17 0440: APTT 73 H 05/27/17 1110: Anion Gap 6, Estimated GFR > 60, BUN/Creatinine Ratio 17.5, Magnesium 2.2, TSH 0.782, CBC w Diff NO MAN DIFF REQ, RBC 4.43, MCV 94.4, MCH 30.8, RDW 13.9, MPV 7.9, Gran % 70.0, Lymphocytes % 15.3 L, Monocytes % 6.3, Eosinophils % 7.9 H, Basophils % 0.5, Absolute Granulocytes 5.9, Absolute Lymphocytes 1.3, Absolute Monocytes 0.5, Absolute Eosinophils 0.7, Absolute Basophils 0, PUBS MCHC 32.6 L Assessment/Plan Assessment/Plan Assessment: 1. Uterine cancer, status post surgery and radiation 2. Recent pulmonary embolism and deep and thrombosis 4. Hypertension 5. Postoperative sinus bradycardia, asymptomatic, with heart rate in the 40-70 range Medications: -At the moment, the patient appears to be hemodynamically stable from a cardiac standpoint. -I would recommend the patient is stable for discharge. -Await further discussions and plans per the surgical service about discharge. -The patient should follow-up with her regular process stripper as an outpatient for extended event monitoring, etc. Continue telemetry? No
== END 2017-05-28 12:32 ==
LOC: 1NO 01:50 → SDA 01:50 → 1NO 01:50 → CANRESERV 15:17 → ENRESERV 15:17 → ENTRNSPT 19:21 → CMPTRNSPT 19:55 → 1NO 19:58 → ENPENDDIS 05-28 11:21 → 1NO 05-28 12:32
PROVIDERS: Internal Medicine Cardiovascular Disease; Nurse Practitioner; Surgery; ADMIT Student in an Organized Health Care Education/Training Program
DX: I82.412 Acute embolism and thrombosis of left femoral vein (principal); Z85.42 Personal history of malignant neoplasm of other parts of uterus; I10 Essential (primary) hypertension; Z86.711 Personal history of pulmonary embolism; Z79.01 Long term (current) use of anticoagulants; E78.5 Hyperlipidemia, unspecified; I97.89 Other postprocedural complications and disorders of the circulatory system, not elsewhere classified; R00.1 Bradycardia, unspecified; Y83.8 Other surgical procedures as the cause of abnormal reaction of the patient, or of later complication, without mention of misadventure at the time of the procedure
CPT/HCPCS: 1NSP; 6020; 36415; 73552; 82436; 93005; 93010; 96372; C1725; C1757; G0378; J0131; J0461; J0690; J1644; J2997; J3490; J7042; J7060; Q9967